=== PATIENT | female | born 1930 | race Caucasian/White ===

== ENCOUNTER 2018-10-10 15:13 | Inpatient (IN) | payer MEDICARE ==
[~2018-10-10] VITALS: Ht 162.6 cm; Wt 56.5 kg
[2018-10-10 15:50] LABS: BASO % 0 % (0-3); EOS # 0.1 x10^3/uL (0.0-0.7); EOS % 1 % (0-3); LYMPH # 1.2 x10^3/uL (1.0-4.8); LYMPH % 20 % (24-48); MEAN CORPUSCULAR HEMOGLOBIN 30 pg (25-35); MEAN CORPUSCULAR HGB CONC 34 g/dL (31-37); MEAN CORPUSCULAR VOLUME 89 fL (79-100); MONO # 0.5 x10^3/uL (0.0-1.1); MONO % 8 % (0-9); NEUT # 4.2 x10^3uL (1.8-7.7); NEUT % 71 % (31-73); PLATELET COUNT 231 x10^3/uL (140-400); RED BLOOD COUNT 4.28 x10^6/uL (3.50-5.40); RED CELL DISTRIBUTION WIDTH 13.2 % (11.5-14.5); WHITE BLOOD COUNT 5.9 x10^3/uL (4.0-11.0)
--- NOTE | 2018-10-10 15:55 | PHYS DOC ---
Past History Past Medical History: Anxiety, Dementia, Depression, Hypertension, Other Past Surgical History: Other Alcohol Use: None Drug Use: None Adult General Chief Complaint Chief Complaint: PSYCH EVALUATION [facility] HPI Patient is a 88 year old female resident of assisted living living brought in for medical clearance for psychiatric admission. Patient states she doesn't know why she is here. Staff of her facility mentioned that she had behavior problem and according to the nursing note she had problem with her who lives at the same facility and calling her son frequency with complaining about everything and getting mad and upset about everything. Patient denies any pain at this time. Patient is alert and oriented and answering questions appropriately. Review of Systems Review of Systems Constitutional: Denies fever or chills [] Eyes: Denies change in visual acuity, redness, or eye pain [] HENT: Denies nasal congestion or sore throat [] Respiratory: Denies cough or shortness of breath [] Cardiovascular: No additional information not addressed in HPI [] GI: Denies abdominal pain, nausea, vomiting, bloody stools or diarrhea [] : Denies dysuria or hematuria [] Musculoskeletal: Denies back pain or joint pain [] Integument: Denies rash or skin lesions [] Neurologic: Denies headache, focal weakness or sensory changes [] Endocrine: Denies polyuria or polydipsia [] All other systems were reviewed and found to be within normal limits, except as documented in this note. Allergies Allergies Allergies Coded Allergies Type Severity Reaction Last Updated Verified No Known Drug Allergies 10/10/18 No Physical Exam Physical Exam Constitutional: Well developed, well nourished, no acute distress, non-toxic appearance. [] HENT: Normocephalic, atraumatic, bilateral external ears normal, oropharynx moist, no oral exudates, nose normal. [] Eyes: PERRLA, EOMI, conjunctiva normal, no discharge. [] Neck: Normal range of motion, no tenderness, supple, no stridor. [] Cardiovascular:Heart rate regular rhythm, no murmur [] Lungs & Thorax: Bilateral breath sounds clear to auscultation [] Abdomen: Bowel sounds normal, soft, no tenderness, no masses, no pulsatile masses. [] Skin: Warm, dry, no erythema, no rash. [] Back: No tenderness, no CVA tenderness. [] Extremities: No tenderness, no cyanosis, no clubbing, ROM intact, no edema. [] Neurologic: Alert and oriented X 3, normal motor function, normal sensory function, no focal deficits noted. [] Psychologic: Affect normal, mood normal. [] Current Patient Data Vital Signs Vital Signs Date Time Temp Pulse Resp B/P (MAP) Pulse Ox O2 Delivery O2 Flow Rate FiO2 10/10/18 15:20 97.9 101 20 98 Room Air EKG EKG EKG interpreted by me. EKG at 1536 showed normal sinus rhythm at rate of 96, normal WA and QT intervals, poor R-wave progress in anteroseptal leads, no acute ST and T-wave abnormalities. Radiology/Procedures Radiology/Procedures [] Course & Med Decision Making Course & Med Decision Making Pertinent Labs reviewed. (See chart for details) Evaluation of patient in ER showed 88-year-old female patient brought in for medical clearance psychiatric admission. Patient was alert and oriented and cooperative and was medically cleared for psychiatric admission. Dragon Disclaimer Dragon Disclaimer This electronic medical record was generated, in whole or in part, using a voice recognition dictation system. Departure Departure: Impression: Primary Impression: Medical clearance for psychiatric admission Additional Impressions: Behavioral problems Elevated blood sugar level Disposition: ADMITTED INPATIENT (at 1620) Condition: STABLE Referrals: LINCOLN ECHEVARRIA MD (PCP) Problem Qualifiers GORDON BUTLER MD Oct 10, 2018 15:55
[2018-10-10 16:03] LABS: ALBUMIN 3.7 g/dL (3.4-5.0); ALBUMIN/GLOBULIN RATIO 1.2 (1.0-1.7); CREATININE 1.1 mg/dL (0.6-1.0); GFR 46.8; POTASSIUM 3.8 mmol/L (3.5-5.1); TOTAL BILIRUBIN 0.4 mg/dL (0.2-1.0); TOTAL PROTEIN 6.9 g/dL (6.4-8.2)
[2018-10-10 16:14] LABS: BACTERIA,URINE 0 /HPF (0-FEW); BILIRUBIN,URINE NEG (NEG); CLARITY,URINE HAZY; COLOR,URINE YELLOW; GLUCOSE,URINE NEG (NEG); NITRITE,URINE NEG (NEG); RBC,URINE 0 /HPF (0-2); SQUAMOUS EPITHELIAL CELL,UR OCC /LPF; UROBILINOGEN,URINE 0.2 mg/dL (0.2 mg/dL); WBC,URINE 0 /HPF (0-4)
[2018-10-10 18:52] VITALS: BP 135/80
[2018-10-10] MEDS ORDERED: CALC-157 PO (19:30)
[2018-10-10] MEDS ORDERED: CLON0.5T11 PO (19:30)
[2018-10-10] MEDS ORDERED: MIRT15TA3 PO (19:30)
[2018-10-10] MEDS ORDERED: ACET500T68 PO (19:30)
[2018-10-10] MEDS ORDERED: RIVA1PAT22 TD (19:30)
[2018-10-10] MEDS ORDERED: MULT-246 PO (19:30)
[2018-10-10] MEDS: MIRTAZAPINE 15 MG TABLET PO SCH (20:34)
[2018-10-10] MEDS: CALCIUM CARB/VIT D3 500/200 TABLET PO SCH (20:34)
[2018-10-10] MEDS: clonazePAM 0.5 MG TABLET PO SCH (20:36)
--- NOTE | 2018-10-10 21:31 | EKG ---
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
[2018-10-10] MEDS: ACETAMINOPHEN 500 MG TABLET PO PRN (22:45)
--- NOTE | 2018-10-10 22:49 | PDOC ---
Exam Note: Yifan Note: Please also refer to the separate dictated note~for this date of service dictated separately. Discussed the patient with Nursing staff reviewed the chart.~Reviewed interim history and current functioning. Reviewed vital signs,~ Labs/ Radiology~and current medications noted below. Continue current treatment with the changes noted in the dictated addendum note Assessment: Vital Signs: Vital Signs Date Time Temp Pulse Resp B/P (MAP) Pulse Ox O2 Delivery O2 Flow Rate FiO2 10/10/18 18:52 99.4 78 20 135/80 (98) 100 10/10/18 16:33 Room Air Labs: Laboratory Tests Test 10/10/18 15:25 White Blood Count 5.9 x10^3/uL (4.0-11.0) Red Blood Count 4.28 x10^6/uL (3.50-5.40) Hemoglobin 13.0 g/dL (12.0-15.5) Hematocrit 38.0 % (36.0-47.0) Mean Corpuscular Volume 89 fL (79-100) Mean Corpuscular Hemoglobin 30 pg (25-35) Mean Corpuscular Hemoglobin Concent 34 g/dL (31-37) Red Cell Distribution Width 13.2 % (11.5-14.5) Platelet Count 231 x10^3/uL (140-400) Neutrophils (%) (Auto) 71 % (31-73) Lymphocytes (%) (Auto) 20 % (24-48) L Monocytes (%) (Auto) 8 % (0-9) Eosinophils (%) (Auto) 1 % (0-3) Basophils (%) (Auto) 0 % (0-3) Neutrophils # (Auto) 4.2 x10^3uL (1.8-7.7) Lymphocytes # (Auto) 1.2 x10^3/uL (1.0-4.8) Monocytes # (Auto) 0.5 x10^3/uL (0.0-1.1) Eosinophils # (Auto) 0.1 x10^3/uL (0.0-0.7) Basophils # (Auto) 0.0 x10^3/uL (0.0-0.2) Urine Collection Type Unknown Urine Color Yellow Urine Clarity Hazy Urine pH 5.5 Urine Specific [place] 1.025 Urine Protein Neg (NEG-TRACE) Urine Glucose (UA) Neg mg/dL (NEG) Urine Ketones (Stick) Trace mg/dL (NEG) Urine Blood Neg (NEG) Urine Nitrite Neg (NEG) Urine Bilirubin Neg (NEG) Urine Urobilinogen Dipstick 0.2 mg/dL (0.2 mg/dL) Urine Leukocyte Esterase Neg (NEG) Urine RBC 0 /HPF (0-2) Urine WBC 0 /HPF (0-4) Urine Squamous Epithelial Cells Occ /LPF Urine Bacteria 0 /HPF (0-FEW) Sodium Level 145 mmol/L (136-145) Potassium Level 3.8 mmol/L (3.5-5.1) Chloride Level 107 mmol/L (98-107) Carbon Dioxide Level 29 mmol/L (21-32) Anion Gap 9 (6-14) Blood Urea Nitrogen 17 mg/dL (7-20) Creatinine 1.1 mg/dL (0.6-1.0) H Estimated GFR (Cockcroft-Gault) 46.8 BUN/Creatinine Ratio 15 (6-20) Glucose Level 186 mg/dL (70-99) H Calcium Level 10.0 mg/dL (8.5-10.1) Magnesium Level 2.0 mg/dL (1.8-2.4) Total Bilirubin 0.4 mg/dL (0.2-1.0) Aspartate Amino Transferase (AST) 20 U/L (15-37) Alanine Aminotransferase (ALT) 23 U/L (14-59) Alkaline Phosphatase 110 U/L (46-116) Total Protein 6.9 g/dL (6.4-8.2) Albumin 3.7 g/dL (3.4-5.0) Albumin/Globulin Ratio 1.2 (1.0-1.7) Current Medications: Meds: Current Medications Clonazepam (KlonoPIN) 0.25 mg TID PO Last administered on 10/10/18at 20:36; Start 10/10/18 at 21:00 Mirtazapine (Remeron) 15 mg QHS PO Last administered on 10/10/18at 20:34; Start 10/10/18 at 21:00 Rivastigmine (Exelon) 1 patch DAILY TD ; Start 10/11/18 at 09:00 Calcium/Vitamin D (Oscal D 500mg/ 200uts) 1 tab BID PO Last administered on at 20:34; Start 10/10/18 at 21:00 Acetaminophen (Tylenol) 500 mg PRN Q6HRS PRN PO PAIN / TEMP Last administered on 10/10/18at 22:45; Start 10/10/18 at 19:45 Multivitamins/ Calcium (Thera-M Plus) 1 tab DAILY PO ; Start 10/11/18 at 09:00 Active Scripts Active Reported Acetaminophen 500 Mg Tablet 500 Mg PO PRN Q6HRS PRN Multi-Vitamin Daily (Multivitamin) 1 Each Tablet 1 Each PO DAILY EXELON 4.6mg/24hr (Rivastigmine) 1 Each Patch.td24 1 Patch TD DAILY Mirtazapine 15 Mg Tablet 15 Mg PO QHS Clonazepam 0.5 Mg Tablet 0.25 Mg PO TID Calcium 500 + Vit D 200 Tablet (Calcium Carbonate/Vitamin D3) 1 Each Tablet 1 Each PO BID I have reviewed the current psychotropics carefully including drug interactions. Risk benefit ratio favors no change other than as noted in my dictated progress note. Diagnosis: Problems: (1) Behavioral problems (2) Elevated blood sugar level (3) Medical clearance for psychiatric admission (4) Anxiety disorder (5) Major depressive disorder, recurrent episode (6) Impulse control disorder (7) Mild cognitive impairment TIM BRUNSON MD Oct 10, 2018 22:49
[2018-10-10] MEDS ORDERED: ACETAMINOPHEN 325 MG TABLET PO PRN (23:00)
[2018-10-10] MEDS ORDERED: MAG HYDROX/AL HYDROX/SIMETH 30 ML ORAL.SUSP PO PRN (23:00)
[2018-10-10] MEDS ORDERED: METHYL SALICYLATE/MENTHOL TOPICAL OINTMENT 29GM TUBE. TP PRN (23:00)
[2018-10-10] MEDS ORDERED: MAGNESIUM HYDROXIDE 2,400 MG/30 ML ORAL.SUSP. PO PRN (23:00)
[2018-10-11 06:05] VITALS: BP 126/77
[2018-10-11] MEDS: clonazePAM 0.5 MG TABLET PO SCH ×3 (08:14→19:41)
[2018-10-11] MEDS: MULTIVITAMIN with MINERAL TABLET. PO SCH (08:15)
[2018-10-11] MEDS: RIVASTIGMINE 4.6MG PATCH. TD SCH (08:15)
[2018-10-11] MEDS: CALCIUM CARB/VIT D3 500/200 TABLET PO SCH ×2 (08:15→19:41)
[2018-10-11] MEDS ORDERED: DEXTROSE 50% 25 GM / 50ML DISP.SYRIN. IV PRN (14:00)
--- NOTE | 2018-10-11 16:09 | HP ---
ADMIT DATE: 10/10/2018 ADMISSION PSYCHIATRIC HISTORY AND EVALUATION This late entry, date of service 10/10/2018 covers elements not covered in my initial notes. The patient is an 88-year-old female referred by Dr. Long, her primary care physician from [facility] in [place], [place]. I met with the patient evening of 10/10/2018 discussed with Isabela German, and nursing staff prior to the patient's admission to gather historical information from [facility] in [place], [place] after the patient was referred to us by Dr. Long, her primary care physician on account of increased anxiety, irritability, being obsessed about going home. She was reportedly verbally abusive to her spouse who also lives at the facility, calling her sons ____ times a day, anxious, agitated, depressed. She has been writing notes over and over, pacing, crying, blames her for the placement. CHIEF COMPLAINT: "They just sent me here to get checked out." HISTORY OF PRESENT ILLNESS: The patient has been residing at the above facility with her after they were unable to stay with themselves at home. She has been increasingly anxious, restless, repetitive and obsessive, wanting to go home, despite the fact that she had failed living at home with her . The patient has had some sleep and appetite changes, pacing, crying spells. No active suicidal or homicidal ideation. No clear history of bipolar disorder. No alcohol or drug abuse. PAST MEDICAL HISTORY: The patient was an inpatient at [facility] from 09/15/2018 to 09/26/2018. CODE STATUS: DNR. DRUG ALLERGIES: Negative. MEDICAL HISTORY: Hypertension, osteoporosis, headaches, weight loss, elevated blood sugar, pseudodementia, systolic murmur. PAST SURGICAL HISTORY: Appendectomy, eye surgery, hysterectomy, dilatation and curettage. She also has chronic constipation. ACCU-CHEKS: None. DIET: Regular with thin liquids. Ambulates independently. CURRENT PSYCHOTROPICS: Klonopin 0.25 mg t.i.d., Remeron 15 mg at bedtime, Exelon patch 4.6 mg a day. FAMILY HISTORY: Noncontributory. 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 No alcohol or drug abuse, physical, sexual or elder abuse history is noted. Not known to be a perpetrator. REACTION TO HOSPITALIZATION: The patient reluctantly accepting of this. ASSETS: Supportive family and stable living at the snf. MENTAL STATUS EXAMINATION: The patient was seen individually evening of 10/10/2018. She is anxious, restless, quite hyperverbal. She was aware of the year and the month, was unsure of the date. Speech coherent. She is able to do two steps on serial sevens. She is somewhat distractable. Mood is depressed, anxious. Affect is mood congruent. She is somewhat obsessive. No active suicidal or homicidal ideation. LABORATORY DATA: Reviewed. IMPRESSION: Major depressive disorder, recurrent, rule out psychotic features, obsessive-compulsive disorder, anxiety disorder, unspecified; mild cognitive impairment. Rest as above. PLAN: Admit to Geropsychiatry Unit at [facility]. I will see the patient daily individually from a psychiatric standpoint, medical followup with Dr. Anderson. We will get past records from [facility]. Continue current psychotropics, observe baseline, then adjust as clinically indicated. She may benefit from the addition of an atypical antipsychotic, may have CT head done if not done recently. Estimated length of stay 10-12 days. DISPOSITION: Plans back to snf. TIM BRUNSON MD DR: FLYNN/mitzi JOB#: [id number] / [id number]
[2018-10-11 16:23] VITALS: BP 136/81
[2018-10-11] MEDS: MIRTAZAPINE 15 MG TABLET PO SCH (19:41)
[2018-10-11 21:22] LABS: THYROID STIM HORMONE (TSH) 2.316 uIU/mL (0.358-3.740)
--- NOTE | 2018-10-11 23:04 | PDOC ---
Exam Note: Yifan Note: Please also refer to the separate dictated note~for this date of service dictated separately.~Patient seen individually. Discussed the patient with Nursing staff reviewed the chart.~Reviewed interim history and current functioning. Reviewed vital signs,~Labs/ Radiology~and current medications noted below. Continue current treatment with the changes noted in the dictated addendum note Assessment: Vital Signs: Vital Signs Date Time Temp Pulse Resp B/P (MAP) Pulse Ox O2 Delivery O2 Flow Rate FiO2 10/11/18 16:23 99.8 89 20 136/81 (99) 98 Room Air Current Medications: Meds: Current Medications Clonazepam (KlonoPIN) 0.25 mg TID PO Last administered on 10/11/18 19:41; Start 10/10/18 at 21:00 Mirtazapine (Remeron) 15 mg QHS PO Last administered on 10/11/18 19:41; Start 10/10/18 at 21:00 Rivastigmine (Exelon) 1 patch DAILY TD Last administered on 10/11/18at 08:15; Start 10/11/18 at 09:00 Calcium/Vitamin D (Oscal D 500mg/ 200uts) 1 tab BID PO Last administered on 19:41; Start 10/10/18 at 21:00 Acetaminophen (Tylenol) 500 mg PRN Q6HRS PRN PO PAIN / TEMP Last administered on 10/10/18at 22:45; Start 10/10/18 at 19:45 Multivitamins/ Calcium (Thera-M Plus) 1 tab DAILY PO Last administered on at 08:15; Start 10/11/18 at 09:00 Acetaminophen (Tylenol) 650 mg PRN Q6HRS PRN PO PAIN / TEMP; Start 10/10/18 at 23:00; Stop 10/10/18 at 23:00; Status DC Multi-Ingredient Ointment (Analgesic [place]) 1 liu PRN QID PRN TP MUSCLE PAIN; Start 10/10/18 at 23:00 Al Hydroxide/Mg Hydroxide (Mylanta Plus Xs) 15 ml PRN AFTMEALHC PRN PO DYSPEPSIA; Start 10/10/18 at 23:00 Magnesium Hydroxide (Milk Of Magnesia) 2,400 mg PRN QHS PRN PO CONSTIPATION; Start 10/10/18 at 23:00 Dextrose 12.5 gm PRN Q15MIN PRN IV SEE COMMENTS; Start 10/11/18 at 14:00 Quetiapine Fumarate (SEROquel) 12.5 mg 0900,1300,1700 PO ; Start 10/12/18 at 09: 00 Active Scripts Active Reported Acetaminophen 500 Mg Tablet 500 Mg PO PRN Q6HRS PRN Multi-Vitamin Daily (Multivitamin) 1 Each Tablet 1 Each PO DAILY EXELON 4.6mg/24hr (Rivastigmine) 1 Each Patch.td24 1 Patch TD DAILY Mirtazapine 15 Mg Tablet 15 Mg PO QHS Clonazepam 0.5 Mg Tablet 0.25 Mg PO TID Calcium 500 + Vit D 200 Tablet (Calcium Carbonate/Vitamin D3) 1 Each Tablet 1 Each PO BID I have reviewed the current psychotropics carefully including drug interactions. Risk benefit ratio favors no change other than as noted in my dictated progress note. Diagnosis: Problems: (1) Behavioral problems (2) Elevated blood sugar level (3) Medical clearance for psychiatric admission (4) Anxiety disorder (5) Major depressive disorder, recurrent episode (6) Impulse control disorder (7) Mild cognitive impairment TIM BRUNSON MD Oct 11, 2018 23:04
--- NOTE | 2018-10-11 23:32 | CONS ---
DATE OF CONSULTATION: 10/11/2018 HISTORY OF PRESENT ILLNESS: The patient is an 88-year-old female patient, resident at [facility], who was admitted on account of being obsessing about going home, verbally abusive to spouse. She called her son about 20-62 times a day, anxious, agitated, depressed, writes notes over and over, pacing, crying, blames for placement, all this in a background of major neurocognitive disorder, vascular, Alzheimer with delusion, depression and behavioral disturbances. She is also known to have anxiety disorder and impulse control disorder. Medically, she apparently is known to have hypertension, osteoporosis, headache, weight loss and hyperglycemia. PAST SURGICAL HISTORY: Significant for cataract extraction, appendectomy, hysterectomy, dilatation and curettage. ALLERGIES: She has no known drug allergies. MEDICATIONS: She is currently on the following medication, rivastigmine for Exelon 4.6 mg 24-hour patch transdermal daily, Tylenol 500 mg every 6 hours, clonazepam 0.25 mg 3 times a day, mirtazapine 15 mg at bedtime, calcium carbonate with vitamin D3 one tablet twice a day, multivitamin 1 tablet once a day. FAMILY HISTORY: Noncontributory. SOCIAL HISTORY: She is . According to her, she has 2 sons. 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 REVIEW OF SYSTEMS: As per history of present illness. PHYSICAL EXAMINATION GENERAL: When I examined her, she looked well and was clearly in no apparent respiratory distress. She was pale, cachectic, but no jaundice, cyanosis, or thyromegaly. No jugular venous distension. No lower limb edema. VITAL SIGNS: Her heart rate was 80, blood pressure was 126/77, temperature was 96.6, respiratory rate 20 and oxygen saturation was 99%. HEAD, EYES, EARS, NOSE, AND THROAT: Showed normocephalic, atraumatic. NECK: Supple with no lymphadenopathy, no thyromegaly, no jugular venous distension. No lower limb edema. HEART: Showed normal first and second heart sounds. No gallop, rub or murmur. CHEST: Clear to auscultation. No crepitation or rhonchi. ABDOMEN: Scaphoid, soft, nontender. NEUROLOGIC: She was demented, but without any obvious lateralizing sign. All her cranial nerves are intact. EXTREMITIES: She moves extremities without difficulty. She ambulates without assistance or assistive devices. LABORATORY DATA: Showed her white cell count to be 5900, hemoglobin 13, hematocrit 38, MCV 89 and platelet count 231,000. Her chemistry showed serum sodium of 145, potassium 3.8, chloride 107, bicarbonate 29, anion gap of 9, BUN 17, creatinine 1.1. Estimated GFR was 47 mL per minute. Her glucose 186, calcium was 10, magnesium 2. Total bilirubin, AST, ALT, alkaline phosphatase were normal. Total protein was 6.9, albumin was 3.7. Urinalysis showed the urine was yellow, hazy with a pH of 5.5, specific gravity of 1.025. The urine was negative for protein, glucose. There was trace of ketones, negative for blood nitrite and leukocyte esterase. There are no rbc's, no wbc's, and no bacteria. IMPRESSION: In summary, this is an 88-year-old female patient, who was admitted on account of being obsessed about going home, verbally abusive to her spouse, called 20-62 times per day, anxious, agitated, depressed, writes notes over and over, pacing, crying, blames her for placement, all this in a background of major neurocognitive disorder, vascular, Alzheimer with delusion, depression, behavioral disturbances; anxiety as well as impulse control disorder. Medically, she is known to have high blood pressure, hyperglycemia, weight loss, osteoporosis as well as chronic constipation. She is in fact is not on any antihypertensive medication or any medication for hyperglycemia. She does have chronic kidney disease with creatinine slightly elevated to 1.1 and estimated GFR of 46. Her blood sugar is definitely high. She seemed to be all in all medically stable. I will obviously monitor her blood sugar and check her hemoglobin A1c and decide if the blood sugar needs to be treated. I will obviously follow the lab work that is still pending at the time of this dictation as her thyroid function test and other labs are still pending at the time of this dictation. Thank you, Dr. Jacobson, for allowing me to participate in the care of this patient. VADIM ALCANTARA MD DR: DARLINE/mitzi JOB#: [id number] / [id number]
[2018-10-12 06:09] VITALS: BP 119/69
[2018-10-12] MEDS: MULTIVITAMIN with MINERAL TABLET. PO SCH (07:45)
[2018-10-12] MEDS: CALCIUM CARB/VIT D3 500/200 TABLET PO SCH ×2 (07:45→20:41)
[2018-10-12] MEDS: RIVASTIGMINE 4.6MG PATCH. TD SCH (07:45)
[2018-10-12] MEDS: clonazePAM 0.5 MG TABLET PO SCH ×3 (07:51→20:39)
[2018-10-12] MEDS: QUEtiapine 25 MG TABLET. PO SCH ×3 (07:52→17:21)
--- NOTE | 2018-10-12 09:23 | RAD ---
EXAM: Head CT without contrast. HISTORY: Mental status changes. TECHNIQUE: Computed tomographic images of the head were obtained without contrast. *One or more of the following individualized dose reduction techniques were utilized for this examination: 1. Automated exposure control. 2. Adjustment of the mA and/or kV according to patient size. 3. Use of iterative reconstruction technique. COMPARISON: 07/31/2017. FINDINGS: There is no acute or subacute extra-axial or intraparenchymal hemorrhage. There is no mass effect or midline shift. There is no hydrocephalus. There are areas of decreased attenuation within the cerebral white matter, nonspecific and likely related to chronic small vessel disease. The visualized portions of the orbits, paranasal sinuses and mastoid air cells are unremarkable. No suspicious calvarial lesion is seen. IMPRESSION: No acute intracranial findings. Note is made that MRI is more sensitive for acute infarction. Electronically signed by: Belén Sweet MD (10/12/2018 9:20 AM) [id number]
[2018-10-12 16:06] VITALS: BP 127/69
[2018-10-12] MEDS: MIRTAZAPINE 15 MG TABLET PO SCH (20:41)
--- NOTE | 2018-10-12 21:19 | PN ---
DATE: 10/11/2018 PSYCHIATRIC PROGRESS NOTE This late entry 10/11/2018 covers elements not covered in my initial note. SUBJECTIVE: I met with the patient in the evening. The patient slept 5-1/2 hours. I met with her repeatedly on rounds that she would continue to follow me after a lengthy initial visit, quite disorganized previous night. We will check a CT head if not done recently, confused, anxious. We are waiting for records from [facility]. REVIEW OF SYSTEMS: Vague somatic symptoms. No CV, , pulmonary, eye system symptoms on review. MENTAL STATUS EXAM: Oriented to herself and situation. Speech coherent, rapid at times. Abstraction fair, computation impaired, language function intact, attention span short. Mood and affect somewhat anxious, labile. LABORATORY DATA: Reviewed. IMPRESSION: Major depressive disorder, severe; anxiety disorder, unspecified; mild cognitive impairment. PLAN: CT head if not done recently. Records from [place], start Seroquel 12.5 mg 3 times a day. Rest unchanged from initial note. MAN Rashad BRUNSON MD DR: FLYNN/mitzi JOB#: [id number] / [id number]
--- NOTE | 2018-10-12 23:07 | PDOC ---
Exam Note: Yifan Note: Please also refer to the separate dictated note~for this date of service dictated separately.~Patient seen individually. Discussed the patient with Nursing staff reviewed the chart.~Reviewed interim history and current functioning. Reviewed vital signs,~Labs/ Radiology~and current medications noted below. Continue current treatment with the changes noted in the dictated addendum note Assessment: Vital Signs: Vital Signs Date Time Temp Pulse Resp B/P (MAP) Pulse Ox O2 Delivery O2 Flow Rate FiO2 10/12/18 16:06 98.2 89 22 127/69 (88) 99 10/11/18 16:23 Room Air I&O Intake and Output 10/12/18 06:59 Intake Total 840 ml Balance 840 ml Intake Oral 840 ml Labs: Laboratory Tests Test 10/12/18 11:47 10/12/18 16:59 Glucose (Fingerstick) 82 mg/dL (70-99) 102 mg/dL (70-99) H Current Medications: Meds: Current Medications Clonazepam (KlonoPIN) 0.25 mg TID PO Last administered on 10/12/18 20:39; Start 10/10/18 at 21:00 Mirtazapine (Remeron) 15 mg QHS PO Last administered on 10/12/18 20:41; Start 10/10/18 at 21:00 Rivastigmine (Exelon) 1 patch DAILY TD Last administered on 10/12/18 07:45; Start 10/11/18 at 09:00 Calcium/Vitamin D (Oscal D 500mg/ 200uts) 1 tab BID PO Last administered on 20:41; Start 10/10/18 at 21:00 Acetaminophen (Tylenol) 500 mg PRN Q6HRS PRN PO PAIN / TEMP Last administered on 10/10/18at 22:45; Start 10/10/18 at 19:45 Multivitamins/ Calcium (Thera-M Plus) 1 tab DAILY PO Last administered on at 07:45; Start 10/11/18 at 09:00 Acetaminophen (Tylenol) 650 mg PRN Q6HRS PRN PO PAIN / TEMP; Start 10/10/18 at 23:00; Stop 10/10/18 at 23:00; Status DC Multi-Ingredient Ointment (Analgesic [place]) 1 liu PRN QID PRN TP MUSCLE PAIN; Start 10/10/18 at 23:00 Al Hydroxide/Mg Hydroxide (Mylanta Plus Xs) 15 ml PRN AFTMEALHC PRN PO DYSPEPSIA; Start 10/10/18 at 23:00 Magnesium Hydroxide (Milk Of Magnesia) 2,400 mg PRN QHS PRN PO CONSTIPATION; Start 10/10/18 at 23:00 Dextrose 12.5 gm PRN Q15MIN PRN IV SEE COMMENTS; Start 10/11/18 at 14:00 Quetiapine Fumarate (SEROquel) 12.5 mg 0900,1300,1700 PO Last administered on at 17:21; Start 10/12/18 at 09:00 Active Scripts Active Reported Acetaminophen 500 Mg Tablet 500 Mg PO PRN Q6HRS PRN Multi-Vitamin Daily (Multivitamin) 1 Each Tablet 1 Each PO DAILY EXELON 4.6mg/24hr (Rivastigmine) 1 Each Patch.td24 1 Patch TD DAILY Mirtazapine 15 Mg Tablet 15 Mg PO QHS Clonazepam 0.5 Mg Tablet 0.25 Mg PO TID Calcium 500 + Vit D 200 Tablet (Calcium Carbonate/Vitamin D3) 1 Each Tablet 1 Each PO BID I have reviewed the current psychotropics carefully including drug interactions. Risk benefit ratio favors no change other than as noted in my dictated progress note. Diagnosis: Problems: (1) Behavioral problems (2) Elevated blood sugar level (3) Medical clearance for psychiatric admission (4) Anxiety disorder (5) Major depressive disorder, recurrent episode (6) Impulse control disorder (7) Mild cognitive impairment TIM BRUNSON MD Oct 12, 2018 23:06
[2018-10-13 05:32] VITALS: BP 113/68
[2018-10-13] MEDS: QUEtiapine 25 MG TABLET. PO SCH ×3 (08:09→16:53)
[2018-10-13] MEDS: RIVASTIGMINE 4.6MG PATCH. TD SCH (08:09)
[2018-10-13] MEDS: CALCIUM CARB/VIT D3 500/200 TABLET PO SCH ×2 (08:09→20:44)
[2018-10-13] MEDS: MULTIVITAMIN with MINERAL TABLET. PO SCH (08:09)
[2018-10-13] MEDS: clonazePAM 0.5 MG TABLET PO SCH ×3 (08:12→20:44)
[2018-10-13 16:23] VITALS: BP 123/81
[2018-10-13] MEDS: MIRTAZAPINE 15 MG TABLET PO SCH (20:44)
--- NOTE | 2018-10-13 22:43 | PDOC ---
Exam Note: Yifan Note: Please also refer to the separate dictated note~for this date of service dictated separately.~Patient seen individually. Discussed the patient with Nursing staff reviewed the chart.~Reviewed interim history and current functioning. Reviewed vital signs,~Labs/ Radiology~and current medications noted below. Continue current treatment with the changes noted in the dictated addendum note Assessment: Vital Signs: Vital Signs Date Time Temp Pulse Resp B/P (MAP) Pulse Ox O2 Delivery O2 Flow Rate FiO2 10/13/18 16:23 98.6 97 20 123/81 (95) 99 Room Air I&O Intake and Output 10/13/18 06:59 Intake Total 1320 ml Balance 1320 ml Intake Oral 1320 ml # Voids 1 Current Medications: Meds: Current Medications Clonazepam (KlonoPIN) 0.25 mg TID PO Last administered on 10/13/18 20:44; Start 10/10/18 at 21:00 Mirtazapine (Remeron) 15 mg QHS PO Last administered on 10/13/18 20:44; Start 10/10/18 at 21:00 Rivastigmine (Exelon) 1 patch DAILY TD Last administered on 10/13/18 08:09; Start 10/11/18 at 09:00 Calcium/Vitamin D (Oscal D 500mg/ 200uts) 1 tab BID PO Last administered on 20:44; Start 10/10/18 at 21:00 Acetaminophen (Tylenol) 500 mg PRN Q6HRS PRN PO PAIN / TEMP Last administered on 10/10/18 22:45; Start 10/10/18 at 19:45 Multivitamins/ Calcium (Thera-M Plus) 1 tab DAILY PO Last administered on 08:09; Start 10/11/18 at 09:00 Acetaminophen (Tylenol) 650 mg PRN Q6HRS PRN PO PAIN / TEMP; Start 10/10/18 at 23:00; Stop 10/10/18 at 23:00; Status DC Multi-Ingredient Ointment (Analgesic [place]) 1 liu PRN QID PRN TP MUSCLE PAIN; Start 10/10/18 at 23:00 Al Hydroxide/Mg Hydroxide (Mylanta Plus Xs) 15 ml PRN AFTMEALHC PRN PO DYSPEPSIA; Start 10/10/18 at 23:00 Magnesium Hydroxide (Milk Of Magnesia) 2,400 mg PRN QHS PRN PO CONSTIPATION; Start 10/10/18 at 23:00 Dextrose 12.5 gm PRN Q15MIN PRN IV SEE COMMENTS; Start 10/11/18 at 14:00 Quetiapine Fumarate (SEROquel) 12.5 mg 0900,1300,1700 PO Last administered on at 16:53; Start 10/12/18 at 09:00 Fluvoxamine Maleate (Luvox) 25 mg HS PO Last administered on 10/13/18at 20:44; Start 10/13/18 at 21:00; Stop 10/15/18 at 23:00 Fluvoxamine Maleate (Luvox) 50 mg HS PO ; Start 10/16/18 at 21:00 Active Scripts Active Reported Acetaminophen 500 Mg Tablet 500 Mg PO PRN Q6HRS PRN Multi-Vitamin Daily (Multivitamin) 1 Each Tablet 1 Each PO DAILY EXELON 4.6mg/24hr (Rivastigmine) 1 Each Patch.td24 1 Patch TD DAILY Mirtazapine 15 Mg Tablet 15 Mg PO QHS Clonazepam 0.5 Mg Tablet 0.25 Mg PO TID Calcium 500 + Vit D 200 Tablet (Calcium Carbonate/Vitamin D3) 1 Each Tablet 1 Each PO BID I have reviewed the current psychotropics carefully including drug interactions. Risk benefit ratio favors no change other than as noted in my dictated progress note. Diagnosis: Problems: (1) Behavioral problems (2) Elevated blood sugar level (3) Medical clearance for psychiatric admission (4) Anxiety disorder (5) Major depressive disorder, recurrent episode (6) Impulse control disorder (7) Mild cognitive impairment TIM BRUNSON MD Oct 13, 2018 22:43
[2018-10-14 06:01] VITALS: BP 106/72
[2018-10-14] MEDS: RIVASTIGMINE 4.6MG PATCH. TD SCH (08:57)
[2018-10-14] MEDS: CALCIUM CARB/VIT D3 500/200 TABLET PO SCH ×2 (08:57→21:24)
[2018-10-14] MEDS: MULTIVITAMIN with MINERAL TABLET. PO SCH (08:58)
[2018-10-14] MEDS: QUEtiapine 25 MG TABLET. PO SCH ×3 (08:58→18:09)
[2018-10-14] MEDS: clonazePAM 0.5 MG TABLET PO SCH ×3 (08:59→21:24)
[2018-10-14 16:06] VITALS: BP 138/81
[2018-10-14] MEDS: MIRTAZAPINE 15 MG TABLET PO SCH (21:24)
--- NOTE | 2018-10-14 21:30 | PN ---
DATE: 10/12/2018 PSYCHIATRIC PROGRESS NOTE This late entry 10/12/2018 covers elements not covered in my initial note. SUBJECTIVE: I met with the patient in the evening. The patient slept 7-1/[address] head shows no acute changes. There is small vessel ischemic disease, but no other acute intracranial abnormality. The patient remains extremely obsessive, anxious, repetitive, slept 7-1/2 hours. REVIEW OF SYSTEMS: No CV, , pulmonary, eye system symptoms on review. MENTAL STATUS EXAM: Reasonably oriented. Speech coherent, rapid at times. Abstraction fair, computation impaired, language function intact, attention span short. Mood and affect labile. LABORATORY DATA: Reviewed. IMPRESSION: Unchanged from initial note. PLAN: No change from initial note, but we will go ahead and add Seroquel 12.5 mg 9 a.m., 1:00 p.m., 5:00 p.m. Rest unchanged. May consider Luvox for her OCD symptoms. TIM BRUNSON MD DR: FLYNN/mitzi JOB#: [id number] / [id number]
--- NOTE | 2018-10-14 21:32 | PN ---
DATE: 10/13/2018 PSYCHIATRIC PROGRESS NOTE This late entry 10/13/2018 covers elements not covered in my initial note. SUBJECTIVE: I met with the patient in the evening at length repeatedly as she was back to me with further questions, part of her obsessiveness, anxiety. Also discussed at treatment team meeting with the entire team. We are waiting for records from [facility]. She has made 210 telephone calls in a few days at the facility before she came here. She has been writing repetitively on pieces of paper, obsessive. REVIEW OF SYSTEMS: Positive for vague somatic symptoms. No CV, , pulmonary, eye system symptoms on review. MENTAL STATUS EXAM: Reasonably oriented. Speech is coherent, rapid. Abstraction fair, computation impaired, language function intact, attention span short. Mood and affect, anxious, labile, obsessive. LABORATORY DATA: Reviewed. IMPRESSION: Unchanged from initial note. PLAN: We will check CT head if not done recently. Start Luvox 25 mg a day for 3 days, then 50 mg a day. Maintain Seroquel. Rest unchanged per initial note. MAN Rashad BRUNSON MD DR: FLYNN/mitzi JOB#: [id number] / [id number]
--- NOTE | 2018-10-14 22:48 | PDOC ---
Exam Note: Yifan Note: Please also refer to the separate dictated note~for this date of service dictated separately.~Patient seen individually. Discussed the patient with Nursing staff reviewed the chart.~Reviewed interim history and current functioning. Reviewed vital signs,~Labs/ Radiology~and current medications noted below. Continue current treatment with the changes noted in the dictated addendum note Assessment: Vital Signs: Vital Signs Date Time Temp Pulse Resp B/P (MAP) Pulse Ox O2 Delivery O2 Flow Rate FiO2 10/14/18 16:06 97.6 82 22 138/81 (100) 97 Room Air I&O Intake and Output 10/14/18 06:59 Intake Total 980 ml Balance 980 ml Intake Oral 980 ml # Voids 1 Current Medications: Meds: Current Medications Clonazepam (KlonoPIN) 0.25 mg TID PO Last administered on 10/14/18 21:24; Start 10/10/18 at 21:00 Mirtazapine (Remeron) 15 mg QHS PO Last administered on 10/14/18 21:24; Start 10/10/18 at 21:00 Rivastigmine (Exelon) 1 patch DAILY TD Last administered on 10/14/18 08:57; Start 10/11/18 at 09:00 Calcium/Vitamin D (Oscal D 500mg/ 200uts) 1 tab BID PO Last administered on 21:24; Start 10/10/18 at 21:00 Acetaminophen (Tylenol) 500 mg PRN Q6HRS PRN PO PAIN / TEMP Last administered on 10/10/18 22:45; Start 10/10/18 at 19:45 Multivitamins/ Calcium (Thera-M Plus) 1 tab DAILY PO Last administered on 08:58; Start 10/11/18 at 09:00 Acetaminophen (Tylenol) 650 mg PRN Q6HRS PRN PO PAIN / TEMP; Start 10/10/18 at 23:00; Stop 10/10/18 at 23:00; Status DC Multi-Ingredient Ointment (Analgesic [place]) 1 liu PRN QID PRN TP MUSCLE PAIN; Start 10/10/18 at 23:00 Al Hydroxide/Mg Hydroxide (Mylanta Plus Xs) 15 ml PRN AFTMEALHC PRN PO DYSPEPSIA; Start 10/10/18 at 23:00 Magnesium Hydroxide (Milk Of Magnesia) 2,400 mg PRN QHS PRN PO CONSTIPATION; Start 10/10/18 at 23:00 Dextrose 12.5 gm PRN Q15MIN PRN IV SEE COMMENTS; Start 10/11/18 at 14:00 Quetiapine Fumarate (SEROquel) 12.5 mg 0900,1300,1700 PO Last administered on at 18:09; Start 10/12/18 at 09:00 Fluvoxamine Maleate (Luvox) 25 mg HS PO Last administered on 10/14/18at 21:24; Start 10/13/18 at 21:00; Stop 10/15/18 at 23:00 Fluvoxamine Maleate (Luvox) 50 mg HS PO ; Start 10/16/18 at 21:00 Active Scripts Active Reported Acetaminophen 500 Mg Tablet 500 Mg PO PRN Q6HRS PRN Multi-Vitamin Daily (Multivitamin) 1 Each Tablet 1 Each PO DAILY EXELON 4.6mg/24hr (Rivastigmine) 1 Each Patch.td24 1 Patch TD DAILY Mirtazapine 15 Mg Tablet 15 Mg PO QHS Clonazepam 0.5 Mg Tablet 0.25 Mg PO TID Calcium 500 + Vit D 200 Tablet (Calcium Carbonate/Vitamin D3) 1 Each Tablet 1 Each PO BID I have reviewed the current psychotropics carefully including drug interactions. Risk benefit ratio favors no change other than as noted in my dictated progress note. Diagnosis: Problems: (1) Behavioral problems (2) Elevated blood sugar level (3) Medical clearance for psychiatric admission (4) Anxiety disorder (5) Major depressive disorder, recurrent episode (6) Impulse control disorder (7) Mild cognitive impairment TIM BRUNSON MD Oct 14, 2018 22:48
[2018-10-15 06:08] VITALS: BP 161/78
[2018-10-15] MEDS: clonazePAM 0.5 MG TABLET PO SCH ×3 (08:45→19:25)
[2018-10-15] MEDS: CALCIUM CARB/VIT D3 500/200 TABLET PO SCH ×2 (08:45→19:21)
[2018-10-15] MEDS: MULTIVITAMIN with MINERAL TABLET. PO SCH (08:46)
[2018-10-15] MEDS: RIVASTIGMINE 4.6MG PATCH. TD SCH (08:46)
[2018-10-15] MEDS: QUEtiapine 25 MG TABLET. PO SCH ×3 (08:46→17:05)
[2018-10-15 10:40] LABS: BASO % 0 % (0-3); EOS # 0.1 x10^3/uL (0.0-0.7); EOS % 3 % (0-3); HEMATOCRIT 37.4 % (36.0-47.0); HEMOGLOBIN 12.6 g/dL (12.0-15.5); LYMPH # 1.2 x10^3/uL (1.0-4.8); LYMPH % 31 % (24-48); MEAN CORPUSCULAR HEMOGLOBIN 30 pg (25-35); MEAN CORPUSCULAR HGB CONC 34 g/dL (31-37); MEAN CORPUSCULAR VOLUME 89 fL (79-100); MONO # 0.5 x10^3/uL (0.0-1.1); MONO % 12 % (0-9); NEUT # 2.1 x10^3uL (1.8-7.7); NEUT % 54 % (31-73); PLATELET COUNT 214 x10^3/uL (140-400); RED BLOOD COUNT 4.19 x10^6/uL (3.50-5.40); RED CELL DISTRIBUTION WIDTH 13.2 % (11.5-14.5); WHITE BLOOD COUNT 3.9 x10^3/uL (4.0-11.0)
[2018-10-15 10:58] LABS: ALBUMIN 3.3 g/dL (3.4-5.0); CALCIUM 9.9 mg/dL (8.5-10.1); CREATININE 0.9 mg/dL (0.6-1.0); POTASSIUM 3.9 mmol/L (3.5-5.1); TOTAL BILIRUBIN 0.5 mg/dL (0.2-1.0); TOTAL PROTEIN 6.6 g/dL (6.4-8.2)
[2018-10-15 17:26] VITALS: BP 124/79
[2018-10-15] MEDS: MIRTAZAPINE 15 MG TABLET PO SCH (19:22)
--- NOTE | 2018-10-15 22:43 | PDOC ---
Exam Note: Yifan Note: Please also refer to the separate dictated note~for this date of service dictated separately.~Patient seen individually. Discussed the patient with Nursing staff reviewed the chart.~Reviewed interim history and current functioning. Reviewed vital signs,~Labs/ Radiology~and current medications noted below. Continue current treatment with the changes noted in the dictated addendum note Assessment: Vital Signs: Vital Signs Date Time Temp Pulse Resp B/P (MAP) Pulse Ox O2 Delivery O2 Flow Rate FiO2 10/15/18 17:26 98.9 88 16 124/79 (94) 96 10/14/18 16:06 Room Air I&O Intake and Output 10/15/18 07:00 Intake Total 960 ml Balance 960 ml Intake Oral 960 ml # Voids 1 Labs: Laboratory Tests Test 10/15/18 10:15 White Blood Count 3.9 x10^3/uL (4.0-11.0) L Red Blood Count 4.19 x10^6/uL (3.50-5.40) Hemoglobin 12.6 g/dL (12.0-15.5) Hematocrit 37.4 % (36.0-47.0) Mean Corpuscular Volume 89 fL (79-100) Mean Corpuscular Hemoglobin 30 pg (25-35) Mean Corpuscular Hemoglobin Concent 34 g/dL (31-37) Red Cell Distribution Width 13.2 % (11.5-14.5) Platelet Count 214 x10^3/uL (140-400) Neutrophils (%) (Auto) 54 % (31-73) Lymphocytes (%) (Auto) 31 % (24-48) Monocytes (%) (Auto) 12 % (0-9) H Eosinophils (%) (Auto) 3 % (0-3) Basophils (%) (Auto) 0 % (0-3) Neutrophils # (Auto) 2.1 x10^3uL (1.8-7.7) Lymphocytes # (Auto) 1.2 x10^3/uL (1.0-4.8) Monocytes # (Auto) 0.5 x10^3/uL (0.0-1.1) Eosinophils # (Auto) 0.1 x10^3/uL (0.0-0.7) Basophils # (Auto) 0.0 x10^3/uL (0.0-0.2) Sodium Level 144 mmol/L (136-145) Potassium Level 3.9 mmol/L (3.5-5.1) Chloride Level 108 mmol/L (98-107) H Carbon Dioxide Level 29 mmol/L (21-32) Anion Gap 7 (6-14) Blood Urea Nitrogen 18 mg/dL (7-20) Creatinine 0.9 mg/dL (0.6-1.0) Estimated GFR (Cockcroft-Gault) 59.0 BUN/Creatinine Ratio 20 (6-20) Glucose Level 124 mg/dL (70-99) H Calcium Level 9.9 mg/dL (8.5-10.1) Total Bilirubin 0.5 mg/dL (0.2-1.0) Aspartate Amino Transferase (AST) 18 U/L (15-37) Alanine Aminotransferase (ALT) 22 U/L (14-59) Alkaline Phosphatase 91 U/L (46-116) Total Protein 6.6 g/dL (6.4-8.2) Albumin 3.3 g/dL (3.4-5.0) L Albumin/Globulin Ratio 1.0 (1.0-1.7) Current Medications: Meds: Current Medications Clonazepam (KlonoPIN) 0.25 mg TID PO Last administered on 10/15/18 19:25; Start 10/10/18 at 21:00 Mirtazapine (Remeron) 15 mg QHS PO Last administered on 10/15/18 19:22; Start 10/10/18 at 21:00 Rivastigmine (Exelon) 1 patch DAILY TD Last administered on 10/15/18 08:46; Start 10/11/18 at 09:00 Calcium/Vitamin D (Oscal D 500mg/ 200uts) 1 tab BID PO Last administered on 19:21; Start 10/10/18 at 21:00 Acetaminophen (Tylenol) 500 mg PRN Q6HRS PRN PO PAIN / TEMP Last administered on 10/10/18 22:45; Start 10/10/18 at 19:45 Multivitamins/ Calcium (Thera-M Plus) 1 tab DAILY PO Last administered on 08:46; Start 10/11/18 at 09:00 Acetaminophen (Tylenol) 650 mg PRN Q6HRS PRN PO PAIN / TEMP; Start 10/10/18 at 23:00; Stop 10/10/18 at 23:00; Status DC Multi-Ingredient Ointment (Analgesic [place]) 1 liu PRN QID PRN TP MUSCLE PAIN; Start 10/10/18 at 23:00 Al Hydroxide/Mg Hydroxide (Mylanta Plus Xs) 15 ml PRN AFTMEALHC PRN PO DYSPEPSIA; Start 10/10/18 at 23:00 Magnesium Hydroxide (Milk Of Magnesia) 2,400 mg PRN QHS PRN PO CONSTIPATION; Start 10/10/18 at 23:00 Dextrose 12.5 gm PRN Q15MIN PRN IV SEE COMMENTS; Start 10/11/18 at 14:00 Quetiapine Fumarate (SEROquel) 12.5 mg 0900,1300,1700 PO Last administered on at 17:05; Start 10/12/18 at 09:00 Fluvoxamine Maleate (Luvox) 25 mg HS PO Last administered on 10/15/18at 19:21; Start 10/13/18 at 21:00; Stop 10/15/18 at 23:00 Fluvoxamine Maleate (Luvox) 50 mg HS PO ; Start 10/16/18 at 21:00 Olanzapine (ZyPREXA ZYDIS) 2.5 mg PRN Q2HR PRN PO PSYCHOSIS Last administered on 10/15/18at 15:54; Start 10/15/18 at 15:45 Active Scripts Active Reported Acetaminophen 500 Mg Tablet 500 Mg PO PRN Q6HRS PRN Multi-Vitamin Daily (Multivitamin) 1 Each Tablet 1 Each PO DAILY EXELON 4.6mg/24hr (Rivastigmine) 1 Each Patch.td24 1 Patch TD DAILY Mirtazapine 15 Mg Tablet 15 Mg PO QHS Clonazepam 0.5 Mg Tablet 0.25 Mg PO TID Calcium 500 + Vit D 200 Tablet (Calcium Carbonate/Vitamin D3) 1 Each Tablet 1 Each PO BID I have reviewed the current psychotropics carefully including drug interactions. Risk benefit ratio favors no change other than as noted in my dictated progress note. Diagnosis: Problems: (1) Behavioral problems (2) Elevated blood sugar level (3) Medical clearance for psychiatric admission (4) Anxiety disorder (5) Major depressive disorder, recurrent episode (6) Impulse control disorder (7) Mild cognitive impairment TIM BRUNSON MD Oct 15, 2018 22:43
[2018-10-16 06:38] VITALS: BP 150/82
[2018-10-16] MEDS: CALCIUM CARB/VIT D3 500/200 TABLET PO SCH ×2 (09:06→19:52)
[2018-10-16] MEDS: clonazePAM 0.5 MG TABLET PO SCH ×3 (09:06→19:56)
[2018-10-16] MEDS: MULTIVITAMIN with MINERAL TABLET. PO SCH (09:07)
[2018-10-16] MEDS: QUEtiapine 25 MG TABLET. PO SCH ×3 (09:07→16:37)
[2018-10-16] MEDS: RIVASTIGMINE 4.6MG PATCH. TD SCH (09:07)
[2018-10-16 15:52] VITALS: BP 111/72
[2018-10-16] MEDS: MIRTAZAPINE 15 MG TABLET PO SCH (19:52)
--- NOTE | 2018-10-16 22:48 | PDOC ---
Exam Note: Yifan Note: Please also refer to the separate dictated note~for this date of service dictated separately.~Patient seen individually. Discussed the patient with Nursing staff reviewed the chart.~Reviewed interim history and current functioning. Reviewed vital signs,~Labs/ Radiology~and current medications noted below. Continue current treatment with the changes noted in the dictated addendum note Assessment: Vital Signs: Vital Signs Date Time Temp Pulse Resp B/P (MAP) Pulse Ox O2 Delivery O2 Flow Rate FiO2 10/16/18 15:52 97.6 76 18 111/72 (85) 97 10/14/18 16:06 Room Air I&O Intake and Output 10/16/18 07:00 Intake Total 960 ml Balance 960 ml Intake Oral 960 ml Current Medications: Meds: Current Medications Clonazepam (KlonoPIN) 0.25 mg TID PO Last administered on 10/16/18 19:56; Start 10/10/18 at 21:00 Mirtazapine (Remeron) 15 mg QHS PO Last administered on 10/16/18 19:52; Start 10/10/18 at 21:00 Rivastigmine (Exelon) 1 patch DAILY TD Last administered on 10/16/18 09:07; Start 10/11/18 at 09:00 Calcium/Vitamin D (Oscal D 500mg/ 200uts) 1 tab BID PO Last administered on 19:52; Start 10/10/18 at 21:00 Acetaminophen (Tylenol) 500 mg PRN Q6HRS PRN PO PAIN / TEMP Last administered on 10/10/18at 22:45; Start 10/10/18 at 19:45 Multivitamins/ Calcium (Thera-M Plus) 1 tab DAILY PO Last administered on 09:07; Start 10/11/18 at 09:00 Acetaminophen (Tylenol) 650 mg PRN Q6HRS PRN PO PAIN / TEMP; Start 10/10/18 at 23:00; Stop 10/10/18 at 23:00; Status DC Multi-Ingredient Ointment (Analgesic [place]) 1 liu PRN QID PRN TP MUSCLE PAIN; Start 10/10/18 at 23:00 Al Hydroxide/Mg Hydroxide (Mylanta Plus Xs) 15 ml PRN AFTMEALHC PRN PO DYSPEPSIA; Start 10/10/18 at 23:00 Magnesium Hydroxide (Milk Of Magnesia) 2,400 mg PRN QHS PRN PO CONSTIPATION; Start 10/10/18 at 23:00 Dextrose 12.5 gm PRN Q15MIN PRN IV SEE COMMENTS; Start 10/11/18 at 14:00 Quetiapine Fumarate (SEROquel) 12.5 mg 0900,1300,1700 PO Last administered on at 16:37; Start 10/12/18 at 09:00 Fluvoxamine Maleate (Luvox) 25 mg HS PO Last administered on 10/15/18at 19:21; Start 10/13/18 at 21:00; Stop 10/15/18 at 23:00; Status DC Fluvoxamine Maleate (Luvox) 50 mg HS PO Last administered on 10/16/18at 19:56; Start 10/16/18 at 21:00 Olanzapine (ZyPREXA ZYDIS) 2.5 mg PRN Q2HR PRN PO PSYCHOSIS Last administered on 10/15/18at 15:54; Start 10/15/18 at 15:45 Active Scripts Active Reported Acetaminophen 500 Mg Tablet 500 Mg PO PRN Q6HRS PRN Multi-Vitamin Daily (Multivitamin) 1 Each Tablet 1 Each PO DAILY EXELON 4.6mg/24hr (Rivastigmine) 1 Each Patch.td24 1 Patch TD DAILY Mirtazapine 15 Mg Tablet 15 Mg PO QHS Clonazepam 0.5 Mg Tablet 0.25 Mg PO TID Calcium 500 + Vit D 200 Tablet (Calcium Carbonate/Vitamin D3) 1 Each Tablet 1 Each PO BID I have reviewed the current psychotropics carefully including drug interactions. Risk benefit ratio favors no change other than as noted in my dictated progress note. Diagnosis: Problems: (1) Behavioral problems (2) Elevated blood sugar level (3) Medical clearance for psychiatric admission (4) Anxiety disorder (5) Major depressive disorder, recurrent episode (6) Impulse control disorder (7) Mild cognitive impairment TIM BRUNSON MD Oct 16, 2018 22:48
[2018-10-17 06:40] VITALS: BP 146/71
[2018-10-17] MEDS: RIVASTIGMINE 4.6MG PATCH. TD SCH (09:30)
[2018-10-17] MEDS: QUEtiapine 25 MG TABLET. PO SCH ×3 (09:30→16:45)
[2018-10-17] MEDS: MULTIVITAMIN with MINERAL TABLET. PO SCH (09:30)
[2018-10-17] MEDS: CALCIUM CARB/VIT D3 500/200 TABLET PO SCH ×2 (09:30→20:06)
[2018-10-17] MEDS: clonazePAM 0.5 MG TABLET PO SCH ×3 (09:32→20:06)
[2018-10-17 16:27] VITALS: BP 126/80
[2018-10-17] MEDS: MIRTAZAPINE 15 MG TABLET PO SCH (20:06)
--- NOTE | 2018-10-17 20:46 | PN ---
DATE: 10/14/2018 PSYCHIATRIC PROGRESS NOTE This late entry 10/14/2018 covers elements not covered in my initial note. SUBJECTIVE: I met with the patient in the evening. The patient slept 6-1/2 hours previous night. She has been obsessive, anxious about her and her clothes, wandering rapidly up and down the hallway, repetitive in her questions to nursing staff and to me as I visited with her at some length. She has vague somatic symptoms. No CV, , pulmonary, eye, ENT system symptoms on review. MENTAL STATUS EXAM: Oriented to herself and situation. Speech coherent, rapid at times. Abstraction fair, computation impaired, language function intact, attention span short. Mood and affect remains extremely anxious, labile. LABORATORY DATA: Reviewed. IMPRESSION: Unchanged from initial note. PLAN: No change from initial note and we will continue to adjust the Seroquel, Luvox and consider BuSpar for anxiety. Maintain Klonopin for now. TIM BRUNSON MD DR: FLYNN/mitzi JOB#: [id number] / [id number]
--- NOTE | 2018-10-17 22:26 | PN ---
DATE: 10/15/2018 PSYCHIATRIC PROGRESS NOTE This late entry 10/15/2018 covers elements not covered in my initial note. SUBJECTIVE: I met with the patient in the evening. The patient slept 7-3/4 hours previous night. She remains extremely anxious, restless. Received Zyprexa at 4:00 p.m. somewhat obsessive, forgetful, but less so than the day before. REVIEW OF SYSTEMS: No CV, , pulmonary, eye, ENT system symptoms on review. MENTAL STATUS EXAM: Oriented to herself and situation. Speech is coherent, less pressured. Abstraction fair, computation impaired, language function intact, attention span short. Mood and affect less anxious and labile. LABORATORY DATA: Reviewed. IMPRESSION: Unchanged from initial note. PLAN: No change from initial note. Adjust the Luvox gradually and Seroquel. MAN Rashad BRUNSON MD DR: FLYNN/mitzi JOB#: [id number] / [id number]
--- NOTE | 2018-10-17 22:28 | PN ---
DATE: 10/16/2018 PSYCHIATRIC PROGRESS NOTE This late entry 10/16/2018 covers elements not covered in my initial note. SUBJECTIVE: I met with the patient in the evening. The patient slept 7-1/2 hours previous night. She has been less anxious per nursing report, more redirectable. REVIEW OF SYSTEMS: No CV, , pulmonary, eye, ENT system symptoms on review. Reliability varies. MENTAL STATUS EXAM: Oriented to herself and situation. Speech coherent, less pressured. Abstraction fair, computation impaired, language function intact, attention span short. Mood and affect is improved. LABORATORY DATA: Reviewed. IMPRESSION: Unchanged from initial note. PLAN: No change from initial note, may need to increase Luvox further. MAN Rashad BRUNSON MD DR: FLYNN/mitzi JOB#: [id number] / [id number]
--- NOTE | 2018-10-17 22:59 | PDOC ---
Exam Note: Yifan Note: Please also refer to the separate dictated note~for this date of service dictated separately.~Patient seen individually. Discussed the patient with Nursing staff reviewed the chart.~Reviewed interim history and current functioning. Reviewed vital signs,~Labs/ Radiology~and current medications noted below. Continue current treatment with the changes noted in the dictated addendum note Assessment: Vital Signs: Vital Signs Date Time Temp Pulse Resp B/P (MAP) Pulse Ox O2 Delivery O2 Flow Rate FiO2 10/17/18 16:27 98.9 74 22 126/80 (95) 98 10/14/18 16:06 Room Air I&O Intake and Output 10/17/18 06:59 Intake Total 960 ml Balance 960 ml Intake Oral 960 ml # Bowel Movements 1 Current Medications: Meds: Current Medications Clonazepam (KlonoPIN) 0.25 mg TID PO Last administered on 10/17/18 20:06; Start 10/10/18 at 21:00 Mirtazapine (Remeron) 15 mg QHS PO Last administered on 10/17/18 20:06; Start 10/10/18 at 21:00 Rivastigmine (Exelon) 1 patch DAILY TD Last administered on 10/17/18 09:30; Start 10/11/18 at 09:00 Calcium/Vitamin D (Oscal D 500mg/ 200uts) 1 tab BID PO Last administered on 10/17 20:06; Start 10/10/18 at 21:00 Acetaminophen (Tylenol) 500 mg PRN Q6HRS PRN PO PAIN / TEMP Last administered on 10/10/18at 22:45; Start 10/10/18 at 19:45 Multivitamins/ Calcium (Thera-M Plus) 1 tab DAILY PO Last administered on 09:30; Start 10/11/18 at 09:00 Acetaminophen (Tylenol) 650 mg PRN Q6HRS PRN PO PAIN / TEMP; Start 10/10/18 at 23:00; Stop 10/10/18 at 23:00; Status DC Multi-Ingredient Ointment (Analgesic [place]) 1 liu PRN QID PRN TP MUSCLE PAIN; Start 10/10/18 at 23:00 Al Hydroxide/Mg Hydroxide (Mylanta Plus Xs) 15 ml PRN AFTMEALHC PRN PO DYSPEPSIA; Start 10/10/18 at 23:00 Magnesium Hydroxide (Milk Of Magnesia) 2,400 mg PRN QHS PRN PO CONSTIPATION; Start 10/10/18 at 23:00 Dextrose 12.5 gm PRN Q15MIN PRN IV SEE COMMENTS; Start 10/11/18 at 14:00 Quetiapine Fumarate (SEROquel) 12.5 mg 0900,1300,1700 PO Last administered on at 16:45; Start 10/12/18 at 09:00 Fluvoxamine Maleate (Luvox) 25 mg HS PO Last administered on 10/15/18at 19:21; Start 10/13/18 at 21:00; Stop 10/15/18 at 23:00; Status DC Fluvoxamine Maleate (Luvox) 50 mg HS PO Last administered on 10/17/18at 20:06; Start 10/16/18 at 21:00 Olanzapine (ZyPREXA ZYDIS) 2.5 mg PRN Q2HR PRN PO PSYCHOSIS Last administered on 10/15/18at 15:54; Start 10/15/18 at 15:45 Active Scripts Active Reported Acetaminophen 500 Mg Tablet 500 Mg PO PRN Q6HRS PRN Multi-Vitamin Daily (Multivitamin) 1 Each Tablet 1 Each PO DAILY EXELON 4.6mg/24hr (Rivastigmine) 1 Each Patch.td24 1 Patch TD DAILY Mirtazapine 15 Mg Tablet 15 Mg PO QHS Clonazepam 0.5 Mg Tablet 0.25 Mg PO TID Calcium 500 + Vit D 200 Tablet (Calcium Carbonate/Vitamin D3) 1 Each Tablet 1 Each PO BID I have reviewed the current psychotropics carefully including drug interactions. Risk benefit ratio favors no change other than as noted in my dictated progress note. Diagnosis: Problems: (1) Behavioral problems (2) Elevated blood sugar level (3) Medical clearance for psychiatric admission (4) Anxiety disorder (5) Major depressive disorder, recurrent episode (6) Impulse control disorder (7) Mild cognitive impairment TIM BRUNSON MD Oct 17, 2018 22:59
[2018-10-18 06:10] VITALS: BP 134/76
[2018-10-18] MEDS: MULTIVITAMIN with MINERAL TABLET. PO SCH (08:40)
[2018-10-18] MEDS: CALCIUM CARB/VIT D3 500/200 TABLET PO SCH ×2 (08:40→20:52)
[2018-10-18] MEDS: QUEtiapine 25 MG TABLET. PO SCH ×3 (08:41→17:04)
[2018-10-18] MEDS: RIVASTIGMINE 4.6MG PATCH. TD SCH (08:42)
[2018-10-18] MEDS: clonazePAM 0.5 MG TABLET PO SCH ×3 (08:43→20:54)
[2018-10-18 15:51] VITALS: BP 108/62
[2018-10-18] MEDS: MIRTAZAPINE 15 MG TABLET PO SCH (20:52)
--- NOTE | 2018-10-18 22:42 | PDOC ---
Exam Note: Yifan Note: Please also refer to the separate dictated note~for this date of service dictated separately.~Patient seen individually. Discussed the patient with Nursing staff reviewed the chart.~Reviewed interim history and current functioning. Reviewed vital signs,~Labs/ Radiology~and current medications noted below. Continue current treatment with the changes noted in the dictated addendum note Assessment: Vital Signs: Vital Signs Date Time Temp Pulse Resp B/P (MAP) Pulse Ox O2 Delivery O2 Flow Rate FiO2 10/18/18 15:51 97.7 82 16 108/62 (77) 97 Room Air I&O Intake and Output 10/18/18 07:00 Intake Total 840 ml Balance 840 ml Intake Oral 840 ml # Voids 1 Current Medications: Meds: Current Medications Clonazepam (KlonoPIN) 0.25 mg TID PO Last administered on 10/18/18 20:54; Start 10/10/18 at 21:00 Mirtazapine (Remeron) 15 mg QHS PO Last administered on 10/18/18 20:52; Start 10/10/18 at 21:00 Rivastigmine (Exelon) 1 patch DAILY TD Last administered on 10/18/18 08:42; Start 10/11/18 at 09:00 Calcium/Vitamin D (Oscal D 500mg/ 200uts) 1 tab BID PO Last administered on 10/18 20:52; Start 10/10/18 at 21:00 Acetaminophen (Tylenol) 500 mg PRN Q6HRS PRN PO PAIN / TEMP Last administered on 10/10/18 22:45; Start 10/10/18 at 19:45 Multivitamins/ Calcium (Thera-M Plus) 1 tab DAILY PO Last administered on 08:40; Start 10/11/18 at 09:00 Acetaminophen (Tylenol) 650 mg PRN Q6HRS PRN PO PAIN / TEMP; Start 10/10/18 at 23:00; Stop 10/10/18 at 23:00; Status DC Multi-Ingredient Ointment (Analgesic [place]) 1 liu PRN QID PRN TP MUSCLE PAIN; Start 10/10/18 at 23:00 Al Hydroxide/Mg Hydroxide (Mylanta Plus Xs) 15 ml PRN AFTMEALHC PRN PO DYSPEPSIA; Start 10/10/18 at 23:00 Magnesium Hydroxide (Milk Of Magnesia) 2,400 mg PRN QHS PRN PO CONSTIPATION; Start 10/10/18 at 23:00 Dextrose 12.5 gm PRN Q15MIN PRN IV SEE COMMENTS; Start 10/11/18 at 14:00 Quetiapine Fumarate (SEROquel) 12.5 mg 0900,1300,1700 PO Last administered on 17:04; Start 10/12/18 at 09:00 Fluvoxamine Maleate (Luvox) 25 mg HS PO Last administered on 10/15/18at 19:21; Start 10/13/18 at 21:00; Stop 10/15/18 at 23:00; Status DC Fluvoxamine Maleate (Luvox) 50 mg HS PO Last administered on 10/18/18at 20:52; Start 10/16/18 at 21:00 Olanzapine (ZyPREXA ZYDIS) 2.5 mg PRN Q2HR PRN PO PSYCHOSIS Last administered on 10/15/18at 15:54; Start 10/15/18 at 15:45 Active Scripts Active Reported Acetaminophen 500 Mg Tablet 500 Mg PO PRN Q6HRS PRN Multi-Vitamin Daily (Multivitamin) 1 Each Tablet 1 Each PO DAILY EXELON 4.6mg/24hr (Rivastigmine) 1 Each Patch.td24 1 Patch TD DAILY Mirtazapine 15 Mg Tablet 15 Mg PO QHS Clonazepam 0.5 Mg Tablet 0.25 Mg PO TID Calcium 500 + Vit D 200 Tablet (Calcium Carbonate/Vitamin D3) 1 Each Tablet 1 Each PO BID I have reviewed the current psychotropics carefully including drug interactions. Risk benefit ratio favors no change other than as noted in my dictated progress note. Diagnosis: Problems: (1) Behavioral problems (2) Elevated blood sugar level (3) Medical clearance for psychiatric admission (4) Anxiety disorder (5) Major depressive disorder, recurrent episode (6) Impulse control disorder (7) Mild cognitive impairment TIM BRUNSON MD Oct 18, 2018 22:42
--- NOTE | 2018-10-19 03:31 | PN ---
DATE: 10/17/2018 This late entry for 10/17/2018 covers elements not covered in my initial note. SUBJECTIVE: I met with the patient in the evening. The patient slept 6-1/2 hours previous night. She has been anxious, restless, but much less than before. She has been less obsessed about leaving, less obsessive about calling her all of which is a positive improvement. REVIEW OF SYSTEMS: No CV, , pulmonary, eye system symptoms on review. Reliability varies. MENTAL STATUS EXAM: Oriented to herself and situation. Speech coherent, less pressured. Abstraction fair, computation impaired, language function intact. Mood and affect showing improvement. LABORATORY DATA: Reviewed. IMPRESSION: Unchanged from initial note. PLAN: No change from initial note. We will continue to gradually increase the Luvox. MAN Rashad BRUNSON MD DR: FLYNN/mitzi JOB#: [id number] / [id number]
[2018-10-19 05:50] VITALS: BP 162/74
[2018-10-19] MEDS: MULTIVITAMIN with MINERAL TABLET. PO SCH (07:21)
[2018-10-19] MEDS: RIVASTIGMINE 4.6MG PATCH. TD SCH (07:21)
[2018-10-19] MEDS: QUEtiapine 25 MG TABLET. PO SCH ×3 (07:22→17:15)
[2018-10-19] MEDS: CALCIUM CARB/VIT D3 500/200 TABLET PO SCH ×2 (07:22→19:49)
[2018-10-19] MEDS: clonazePAM 0.5 MG TABLET PO SCH ×3 (07:24→19:50)
[2018-10-19 16:49] VITALS: BP 112/72
[2018-10-19] MEDS: MIRTAZAPINE 15 MG TABLET PO SCH (19:49)
--- NOTE | 2018-10-19 21:50 | PN ---
DATE: 10/18/2018 PSYCHIATRIC PROGRESS NOTE This late entry 10/18/2018 covers elements not covered in my initial note. SUBJECTIVE: I met with the patient in the evening. The patient slept 5-3/4 hours previous night. She was quite less anxious and more redirectable, pleasant, previous night, fixated on discharge. Today on 10/18/2018 she is fixated on laundry and irrelevant things somewhat obsessive, anxious, but overall improved. No CV, , pulmonary, eye system symptoms on review. MENTAL STATUS EXAM: Oriented to herself and situation. Speech coherent, rapid at times. Abstraction fair, computation impaired, language function intact, attention span short. Mood and affect still somewhat anxious, obsessive, less so than before. LABORATORY DATA: Reviewed. IMPRESSION: Unchanged from initial note. PLAN: No change from initial note. MAN Rashad BRUNSON MD DR: FLYNN/mitzi JOB#: [id number] / [id number]
--- NOTE | 2018-10-19 22:35 | PDOC ---
Exam Note: Yifan Note: Please also refer to the separate dictated note~for this date of service dictated separately.~Patient seen individually. Discussed the patient with Nursing staff reviewed the chart.~Reviewed interim history and current functioning. Reviewed vital signs,~Labs/ Radiology~and current medications noted below. Continue current treatment with the changes noted in the dictated addendum note Assessment: Vital Signs: Vital Signs Date Time Temp Pulse Resp B/P (MAP) Pulse Ox O2 Delivery O2 Flow Rate FiO2 10/19/18 16:49 99.1 90 16 112/72 (85) 100 10/18/18 15:51 Room Air I&O Intake and Output 10/19/18 07:00 Intake Total 1440 ml Balance 1440 ml Intake Oral 1440 ml Current Medications: Meds: Current Medications Clonazepam (KlonoPIN) 0.25 mg TID PO Last administered on 10/19/18 19:50; Start 10/10/18 at 21:00 Mirtazapine (Remeron) 15 mg QHS PO Last administered on 10/19/18 19:49; Start 10/10/18 at 21:00 Rivastigmine (Exelon) 1 patch DAILY TD Last administered on 10/19/18 07:21; Start 10/11/18 at 09:00 Calcium/Vitamin D (Oscal D 500mg/ 200uts) 1 tab BID PO Last administered on 10/19 19:49; Start 10/10/18 at 21:00 Acetaminophen (Tylenol) 500 mg PRN Q6HRS PRN PO PAIN / TEMP Last administered on 10/10/18 22:45; Start 10/10/18 at 19:45 Multivitamins/ Calcium (Thera-M Plus) 1 tab DAILY PO Last administered on 07:21; Start 10/11/18 at 09:00 Acetaminophen (Tylenol) 650 mg PRN Q6HRS PRN PO PAIN / TEMP; Start 10/10/18 at 23:00; Stop 10/10/18 at 23:00; Status DC Multi-Ingredient Ointment (Analgesic [place]) 1 liu PRN QID PRN TP MUSCLE PAIN; Start 10/10/18 at 23:00 Al Hydroxide/Mg Hydroxide (Mylanta Plus Xs) 15 ml PRN AFTMEALHC PRN PO DYSPEPSIA; Start 10/10/18 at 23:00 Magnesium Hydroxide (Milk Of Magnesia) 2,400 mg PRN QHS PRN PO CONSTIPATION; Start 10/10/18 at 23:00 Dextrose 12.5 gm PRN Q15MIN PRN IV SEE COMMENTS; Start 10/11/18 at 14:00 Quetiapine Fumarate (SEROquel) 12.5 mg 0900,1300,1700 PO Last administered on at 17:15; Start 10/12/18 at 09:00 Fluvoxamine Maleate (Luvox) 25 mg HS PO Last administered on 10/15/18 19:21; Start 10/13/18 at 21:00; Stop 10/15/18 at 23:00; Status DC Fluvoxamine Maleate (Luvox) 50 mg HS PO Last administered on 10/19/18at 19:49; Start 10/16/18 at 21:00 Olanzapine (ZyPREXA ZYDIS) 2.5 mg PRN Q2HR PRN PO PSYCHOSIS Last administered on 10/19/18at 20:24; Start 10/15/18 at 15:45 Active Scripts Active Reported Acetaminophen 500 Mg Tablet 500 Mg PO PRN Q6HRS PRN Multi-Vitamin Daily (Multivitamin) 1 Each Tablet 1 Each PO DAILY EXELON 4.6mg/24hr (Rivastigmine) 1 Each Patch.td24 1 Patch TD DAILY Mirtazapine 15 Mg Tablet 15 Mg PO QHS Clonazepam 0.5 Mg Tablet 0.25 Mg PO TID Calcium 500 + Vit D 200 Tablet (Calcium Carbonate/Vitamin D3) 1 Each Tablet 1 Each PO BID I have reviewed the current psychotropics carefully including drug interactions. Risk benefit ratio favors no change other than as noted in my dictated progress note. Diagnosis: Problems: (1) Behavioral problems (2) Elevated blood sugar level (3) Medical clearance for psychiatric admission (4) Anxiety disorder (5) Major depressive disorder, recurrent episode (6) Impulse control disorder (7) Mild cognitive impairment TIM BRUNSON MD Oct 19, 2018 22:35
[2018-10-20 06:04] VITALS: BP 143/79
[2018-10-20] MEDS: RIVASTIGMINE 4.6MG PATCH. TD SCH (08:29)
[2018-10-20] MEDS: MULTIVITAMIN with MINERAL TABLET. PO SCH (08:30)
[2018-10-20] MEDS: CALCIUM CARB/VIT D3 500/200 TABLET PO SCH ×2 (08:30→20:33)
[2018-10-20] MEDS: QUEtiapine 25 MG TABLET. PO SCH ×3 (08:31→16:56)
[2018-10-20] MEDS: clonazePAM 0.5 MG TABLET PO SCH ×3 (08:32→20:34)
[2018-10-20 16:15] VITALS: BP 128/79
[2018-10-20] MEDS: MIRTAZAPINE 15 MG TABLET PO SCH (20:33)
--- NOTE | 2018-10-20 22:43 | PDOC ---
Exam Note: Yifan Note: Please also refer to the separate dictated note~for this date of service dictated separately.~Patient seen individually. Discussed the patient with Nursing staff reviewed the chart.~Reviewed interim history and current functioning. Reviewed vital signs,~Labs/ Radiology~and current medications noted below. Continue current treatment with the changes noted in the dictated addendum note Assessment: Vital Signs: Vital Signs Date Time Temp Pulse Resp B/P (MAP) Pulse Ox O2 Delivery O2 Flow Rate FiO2 10/20/18 16:15 98.4 98 20 128/79 (95) 99 Room Air I&O Intake and Output 10/20/18 07:00 Intake Total 1200 ml Balance 1200 ml Intake Oral 1200 ml Current Medications: Meds: Current Medications Clonazepam (KlonoPIN) 0.25 mg TID PO Last administered on 10/20/18 20:34; Start 10/10/18 at 21:00 Mirtazapine (Remeron) 15 mg QHS PO Last administered on 10/20/18 20:33; Start 10/10/18 at 21:00 Rivastigmine (Exelon) 1 patch DAILY TD Last administered on 10/20/18 08:29; Start 10/11/18 at 09:00; Stop 10/20/18 at 11:26; Status DC Calcium/Vitamin D (Oscal D 500mg/ 200uts) 1 tab BID PO Last administered on 10/20 20:33; Start 10/10/18 at 21:00 Acetaminophen (Tylenol) 500 mg PRN Q6HRS PRN PO PAIN / TEMP Last administered on 10/10/18 22:45; Start 10/10/18 at 19:45 Multivitamins/ Calcium (Thera-M Plus) 1 tab DAILY PO Last administered on 08:30; Start 10/11/18 at 09:00 Acetaminophen (Tylenol) 650 mg PRN Q6HRS PRN PO PAIN / TEMP; Start 10/10/18 at 23:00; Stop 10/10/18 at 23:00; Status DC Multi-Ingredient Ointment (Analgesic [place]) 1 liu PRN QID PRN TP MUSCLE PAIN; Start 10/10/18 at 23:00 Al Hydroxide/Mg Hydroxide (Mylanta Plus Xs) 15 ml PRN AFTMEALHC PRN PO DYSPEPSIA; Start 10/10/18 at 23:00 Magnesium Hydroxide (Milk Of Magnesia) 2,400 mg PRN QHS PRN PO CONSTIPATION; Start 10/10/18 at 23:00 Dextrose 12.5 gm PRN Q15MIN PRN IV SEE COMMENTS; Start 10/11/18 at 14:00 Quetiapine Fumarate (SEROquel) 12.5 mg 0900,1300,1700 PO Last administered on 17:15; Start 10/12/18 at 09:00; Stop 10/20/18 at 07:47; Status DC Fluvoxamine Maleate (Luvox) 25 mg HS PO Last administered on 10/15/18at 19:21; Start 10/13/18 at 21:00; Stop 10/15/18 at 23:00; Status DC Fluvoxamine Maleate (Luvox) 50 mg HS PO Last administered on 10/20/18 20:33; Start 10/16/18 at 21:00 Olanzapine (ZyPREXA ZYDIS) 2.5 mg PRN Q2HR PRN PO PSYCHOSIS Last administered on 10/19/18 20:24; Start 10/15/18 at 15:45 Quetiapine Fumarate (SEROquel) 12.5 mg BID@1300,1700 PO Last administered on 10/20/18at 16:56; Start 10/20/18 at 13:00 Quetiapine Fumarate (SEROquel) 25 mg DAILY PO Last administered on 10/20/18at 08: 31; Start 10/20/18 at 09:00 Rivastigmine (Exelon) 1 patch DAILY TD ; Start 10/21/18 at 09:00 Active Scripts Active Reported Acetaminophen 500 Mg Tablet 500 Mg PO PRN Q6HRS PRN Multi-Vitamin Daily (Multivitamin) 1 Each Tablet 1 Each PO DAILY EXELON 4.6mg/24hr (Rivastigmine) 1 Each Patch.td24 1 Patch TD DAILY Mirtazapine 15 Mg Tablet 15 Mg PO QHS Clonazepam 0.5 Mg Tablet 0.25 Mg PO TID Calcium 500 + Vit D 200 Tablet (Calcium Carbonate/Vitamin D3) 1 Each Tablet 1 Each PO BID I have reviewed the current psychotropics carefully including drug interactions. Risk benefit ratio favors no change other than as noted in my dictated progress note. Diagnosis: Problems: (1) Behavioral problems (2) Elevated blood sugar level (3) Medical clearance for psychiatric admission (4) Anxiety disorder (5) Major depressive disorder, recurrent episode (6) Impulse control disorder (7) Mild cognitive impairment TIM BRUNSON MD Oct 20, 2018 22:43
[2018-10-21 05:39] VITALS: BP 144/79
[2018-10-21] MEDS: MULTIVITAMIN with MINERAL TABLET. PO SCH (08:05)
[2018-10-21] MEDS: QUEtiapine 25 MG TABLET. PO SCH ×3 (08:05→18:03)
[2018-10-21] MEDS: CALCIUM CARB/VIT D3 500/200 TABLET PO SCH ×2 (08:05→20:43)
[2018-10-21] MEDS: clonazePAM 0.5 MG TABLET PO SCH ×3 (08:07→20:43)
[2018-10-21] MEDS: RIVASTIGMINE 9.5MG PATCH. TD SCH (08:09)
[2018-10-21] MEDS: ACETAMINOPHEN 500 MG TABLET PO PRN (10:42)
[2018-10-21 16:33] VITALS: BP 136/80
--- NOTE | 2018-10-21 18:33 | PN ---
DATE: 10/19/2018 PSYCHIATRIC PROGRESS NOTE This late entry 10/19/2018 covers elements not covered in my initial note. SUBJECTIVE: I met with the patient in the evening. The patient slept 8-1/4 hours previous night. The patient remains walking fast up and down the hallway on the unit, somewhat anxious, repetitive about discharge plans and I discussed with her at length individually. She wants her medications explained and I went through everything with her on each of her psychotropic, indication, side effects. REVIEW OF SYSTEMS: Vague somatic symptoms. No CV, , pulmonary, eye system symptoms on review. MENTAL STATUS EXAM: Oriented to herself and situation. Speech coherent, pressured, but less so than before. Abstraction fair, computation impaired, language function intact, attention span short. Mood and affect somewhat anxious, labile, but improved. LABORATORY DATA: Reviewed. IMPRESSION: Unchanged from initial note. PLAN: No change from initial note. She is currently on Seroquel 12.5 mg at 0900, we will increase it to 25 mg. Continue the 1300 at 12.5 mg and 1700 at 12.5 mg and Luvox is being increased gradually, maintain Remeron and Klonopin. TIM BRUNSON MD DR: FLYNN/mitzi JOB#: [id number] / [id number]
[2018-10-21] MEDS: MIRTAZAPINE 15 MG TABLET PO SCH (20:43)
--- NOTE | 2018-10-21 22:38 | PDOC ---
Exam Note: Yifan Note: Please also refer to the separate dictated note~for this date of service dictated separately.~Patient seen individually. Discussed the patient with Nursing staff reviewed the chart.~Reviewed interim history and current functioning. Reviewed vital signs,~Labs/ Radiology~and current medications noted below. Continue current treatment with the changes noted in the dictated addendum note Assessment: Vital Signs: Vital Signs Date Time Temp Pulse Resp B/P (MAP) Pulse Ox O2 Delivery O2 Flow Rate FiO2 10/21/18 16:33 97.0 73 16 136/80 (98) 98 10/21/18 05:39 Room Air I&O Intake and Output 10/21/18 07:00 Intake Total 860 ml Balance 860 ml Intake Oral 860 ml Current Medications: Meds: Current Medications Clonazepam (KlonoPIN) 0.25 mg TID PO Last administered on 10/21/18 20:43; Start 10/10/18 at 21:00 Mirtazapine (Remeron) 15 mg QHS PO Last administered on 10/21/18 20:43; Start 10/10/18 at 21:00 Rivastigmine (Exelon) 1 patch DAILY TD Last administered on 10/20/18 08:29; Start 10/11/18 at 09:00; Stop 10/20/18 at 11:26; Status DC Calcium/Vitamin D (Oscal D 500mg/ 200uts) 1 tab BID PO Last administered on 10/21 20:43; Start 10/10/18 at 21:00 Acetaminophen (Tylenol) 500 mg PRN Q6HRS PRN PO PAIN / TEMP Last administered on 10/21/18 10:42; Start 10/10/18 at 19:45 Multivitamins/ Calcium (Thera-M Plus) 1 tab DAILY PO Last administered on 08:05; Start 10/11/18 at 09:00 Acetaminophen (Tylenol) 650 mg PRN Q6HRS PRN PO PAIN / TEMP; Start 10/10/18 at 23:00; Stop 10/10/18 at 23:00; Status DC Multi-Ingredient Ointment (Analgesic [place]) 1 liu PRN QID PRN TP MUSCLE PAIN; Start 10/10/18 at 23:00 Al Hydroxide/Mg Hydroxide (Mylanta Plus Xs) 15 ml PRN AFTMEALHC PRN PO DYSPEPSIA; Start 10/10/18 at 23:00 Magnesium Hydroxide (Milk Of Magnesia) 2,400 mg PRN QHS PRN PO CONSTIPATION; Start 10/10/18 at 23:00 Dextrose 12.5 gm PRN Q15MIN PRN IV SEE COMMENTS; Start 10/11/18 at 14:00 Quetiapine Fumarate (SEROquel) 12.5 mg 0900,1300,1700 PO Last administered on 17:15; Start 10/12/18 at 09:00; Stop 10/20/18 at 07:47; Status DC Fluvoxamine Maleate (Luvox) 25 mg HS PO Last administered on 10/15/18 19:21; Start 10/13/18 at 21:00; Stop 10/15/18 at 23:00; Status DC Fluvoxamine Maleate (Luvox) 50 mg HS PO Last administered on 10/21/18 20:43; Start 10/16/18 at 21:00 Olanzapine (ZyPREXA ZYDIS) 2.5 mg PRN Q2HR PRN PO PSYCHOSIS Last administered on 10/19/18 20:24; Start 10/15/18 at 15:45 Quetiapine Fumarate (SEROquel) 12.5 mg BID@1300,1700 PO Last administered on 18:03; Start 10/20/18 at 13:00 Quetiapine Fumarate (SEROquel) 25 mg DAILY PO Last administered on 10/21/18 08: 05; Start 10/20/18 at 09:00 Rivastigmine (Exelon) 1 patch DAILY TD Last administered on 10/21/18 08:09; Start 10/21/18 at 09:00 Active Scripts Active Reported Acetaminophen 500 Mg Tablet 500 Mg PO PRN Q6HRS PRN Multi-Vitamin Daily (Multivitamin) 1 Each Tablet 1 Each PO DAILY EXELON 4.6mg/24hr (Rivastigmine) 1 Each Patch.td24 1 Patch TD DAILY Mirtazapine 15 Mg Tablet 15 Mg PO QHS Clonazepam 0.5 Mg Tablet 0.25 Mg PO TID Calcium 500 + Vit D 200 Tablet (Calcium Carbonate/Vitamin D3) 1 Each Tablet 1 Each PO BID I have reviewed the current psychotropics carefully including drug interactions. Risk benefit ratio favors no change other than as noted in my dictated progress note. Diagnosis: Problems: (1) Behavioral problems (2) Elevated blood sugar level (3) Medical clearance for psychiatric admission (4) Anxiety disorder (5) Major depressive disorder, recurrent episode (6) Impulse control disorder (7) Mild cognitive impairment TIM BRUNSON MD Oct 21, 2018 22:38
[2018-10-22 06:09] VITALS: BP 128/65
[2018-10-22 07:31] LABS: BASO % 1 % (0-3); EOS # 0.2 x10^3/uL (0.0-0.7); EOS % 5 % (0-3); HEMATOCRIT 36.8 % (36.0-47.0); HEMOGLOBIN 12.6 g/dL (12.0-15.5); LYMPH # 1.3 x10^3/uL (1.0-4.8); LYMPH % 30 % (24-48); MEAN CORPUSCULAR HEMOGLOBIN 30 pg (25-35); MEAN CORPUSCULAR HGB CONC 34 g/dL (31-37); MEAN CORPUSCULAR VOLUME 88 fL (79-100); MONO # 0.6 x10^3/uL (0.0-1.1); MONO % 13 % (0-9); NEUT # 2.3 x10^3uL (1.8-7.7); NEUT % 52 % (31-73); PLATELET COUNT 214 x10^3/uL (140-400); RED BLOOD COUNT 4.19 x10^6/uL (3.50-5.40); RED CELL DISTRIBUTION WIDTH 13.3 % (11.5-14.5); WHITE BLOOD COUNT 4.4 x10^3/uL (4.0-11.0)
[2018-10-22 07:53] LABS: ALBUMIN 3.3 g/dL (3.4-5.0); CALCIUM 9.6 mg/dL (8.5-10.1); GFR 52.2; POTASSIUM 4.3 mmol/L (3.5-5.1); TOTAL BILIRUBIN 0.3 mg/dL (0.2-1.0); TOTAL PROTEIN 6.5 g/dL (6.4-8.2)
[2018-10-22] MEDS: CALCIUM CARB/VIT D3 500/200 TABLET PO SCH ×2 (08:32→19:32)
[2018-10-22] MEDS: MULTIVITAMIN with MINERAL TABLET. PO SCH (08:32)
[2018-10-22] MEDS: QUEtiapine 25 MG TABLET. PO SCH ×3 (08:32→16:36)
[2018-10-22] MEDS: RIVASTIGMINE 9.5MG PATCH. TD SCH (08:32)
[2018-10-22] MEDS: clonazePAM 0.5 MG TABLET PO SCH ×3 (08:34→19:33)
[2018-10-22 16:57] VITALS: BP 125/71
[2018-10-22] MEDS: MIRTAZAPINE 15 MG TABLET PO SCH (19:32)
--- NOTE | 2018-10-22 22:17 | PN ---
DATE: 10/20/2018 PSYCHIATRIC PROGRESS NOTE This late entry 10/20/2018 covers elements not covered in my initial note. SUBJECTIVE: I met with the patient in the evening, staffed at a treatment team meeting with the entire team earlier in the day. The patient has been less obsessive and anxious, less irritable. Sleeping about 7 hours. Appetite 90%. REVIEW OF SYSTEMS: No CV, , pulmonary, eye system symptoms on review. MENTAL STATUS EXAM: Oriented to herself and situation. Speech coherent, pressured, less so than before. Abstraction fair, computation impaired, language function intact, attention span short. Mood and affect, anxious, labile, but better than before. LABORATORY DATA: Reviewed. IMPRESSION: Unchanged from initial note. PLAN: Increase the Exelon patch from 9.5 mg a day after she has been on 4.6 for 5 days. Rest unchanged per initial note. MAN Rashad BRUNSNO MD DR: FLYNN/mitzi JOB#: [id number] / [id number]
[2018-10-23 05:43] VITALS: BP 122/63
[2018-10-23] MEDS: QUEtiapine 25 MG TABLET. PO SCH ×3 (08:14→18:13)
[2018-10-23] MEDS: RIVASTIGMINE 9.5MG PATCH. TD SCH (08:14)
[2018-10-23] MEDS: MULTIVITAMIN with MINERAL TABLET. PO SCH (08:14)
[2018-10-23] MEDS: CALCIUM CARB/VIT D3 500/200 TABLET PO SCH ×2 (08:14→19:44)
[2018-10-23] MEDS: clonazePAM 0.5 MG TABLET PO SCH ×3 (08:16→19:45)
--- NOTE | 2018-10-23 09:49 | PDOC ---
Exam Note: Yifan Note: Late entry for DOS 10/22/2018. Please also refer to the separate dictated note~ for this date of service dictated separately.~Patient seen individually. Discussed the patient with Nursing staff reviewed the chart.~Reviewed interim history and current functioning. Reviewed vital signs,~Labs/ Radiology~and current medications noted below. Continue current treatment with the changes noted in the dictated addendum note Assessment: Vital Signs: VS - Last 72 Hours, by Label Date Time Temp Pulse Resp B/P (MAP) Pulse Ox O2 Delivery O2 Flow Rate FiO2 10/23/18 05:43 98.0 65 20 122/63 (82) 93 10/22/18 16:57 98.1 82 18 125/71 (89) 96 Room Air 10/22/18 06:09 97.6 65 16 128/65 (86) 97 10/21/18 16:33 97.0 73 16 136/80 (98) 98 10/21/18 05:39 98.6 76 18 144/79 (100) 96 Room Air 10/20/18 16:15 98.4 98 20 128/79 (95) 99 Room Air Vital Signs Date Time Temp Pulse Resp B/P (MAP) Pulse Ox O2 Delivery O2 Flow Rate FiO2 10/23/18 05:43 98.0 65 20 122/63 (82) 93 10/22/18 16:57 Room Air I&O Intake and Output 10/23/18 06:59 Intake Total 1740 ml Balance 1740 ml Intake Oral 1740 ml # Voids 1 Current Medications: Meds: Current Medications Clonazepam (KlonoPIN) 0.25 mg TID PO Last administered on 10/23/18 08:16; Start 10/10/18 at 21:00 Mirtazapine (Remeron) 15 mg QHS PO Last administered on 10/22/18 19:32; Start 10/10/18 at 21:00 Rivastigmine (Exelon) 1 patch DAILY TD Last administered on 10/20/18 08:29; Start 10/11/18 at 09:00; Stop 10/20/18 at 11:26; Status DC Calcium/Vitamin D (Oscal D 500mg/ 200uts) 1 tab BID PO Last administered on 10/23at 08:14; Start 10/10/18 at 21:00 Acetaminophen (Tylenol) 500 mg PRN Q6HRS PRN PO PAIN / TEMP Last administered on 10/21/18at 10:42; Start 10/10/18 at 19:45 Multivitamins/ Calcium (Thera-M Plus) 1 tab DAILY PO Last administered on at 08:14; Start 10/11/18 at 09:00 Acetaminophen (Tylenol) 650 mg PRN Q6HRS PRN PO PAIN / TEMP; Start 10/10/18 at 23:00; Stop 10/10/18 at 23:00; Status DC Multi-Ingredient Ointment (Analgesic [place]) 1 liu PRN QID PRN TP MUSCLE PAIN; Start 10/10/18 at 23:00 Al Hydroxide/Mg Hydroxide (Mylanta Plus Xs) 15 ml PRN AFTMEALHC PRN PO DYSPEPSIA; Start 10/10/18 at 23:00 Magnesium Hydroxide (Milk Of Magnesia) 2,400 mg PRN QHS PRN PO CONSTIPATION; Start 10/10/18 at 23:00 Dextrose 12.5 gm PRN Q15MIN PRN IV SEE COMMENTS; Start 10/11/18 at 14:00 Quetiapine Fumarate (SEROquel) 12.5 mg 0900,1300,1700 PO Last administered on 17:15; Start 10/12/18 at 09:00; Stop 10/20/18 at 07:47; Status DC Fluvoxamine Maleate (Luvox) 25 mg HS PO Last administered on 10/15/18 19:21; Start 10/13/18 at 21:00; Stop 10/15/18 at 23:00; Status DC Fluvoxamine Maleate (Luvox) 50 mg HS PO Last administered on 10/22/18 19:32; Start 10/16/18 at 21:00 Olanzapine (ZyPREXA ZYDIS) 2.5 mg PRN Q2HR PRN PO PSYCHOSIS Last administered on 10/19/18 20:24; Start 10/15/18 at 15:45 Quetiapine Fumarate (SEROquel) 12.5 mg BID@1300,1700 PO Last administered on 16:36; Start 10/20/18 at 13:00 Quetiapine Fumarate (SEROquel) 25 mg DAILY PO Last administered on 10/23/18at 08: 14; Start 10/20/18 at 09:00 Rivastigmine (Exelon) 1 patch DAILY TD Last administered on 10/23/18at 08:14; Start 10/21/18 at 09:00 Active Scripts Active Reported Acetaminophen 500 Mg Tablet 500 Mg PO PRN Q6HRS PRN Multi-Vitamin Daily (Multivitamin) 1 Each Tablet 1 Each PO DAILY EXELON 4.6mg/24hr (Rivastigmine) 1 Each Patch.td24 1 Patch TD DAILY Mirtazapine 15 Mg Tablet 15 Mg PO QHS Clonazepam 0.5 Mg Tablet 0.25 Mg PO TID Calcium 500 + Vit D 200 Tablet (Calcium Carbonate/Vitamin D3) 1 Each Tablet 1 Each PO BID I have reviewed the current psychotropics carefully including drug interactions. Risk benefit ratio favors no change other than as noted in my dictated progress note. Diagnosis: Problems: (1) Behavioral problems (2) Elevated blood sugar level (3) Medical clearance for psychiatric admission (4) Anxiety disorder (5) Major depressive disorder, recurrent episode (6) Impulse control disorder (7) Mild cognitive impairment TIM BRUNSON MD Oct 23, 2018 09:49
--- NOTE | 2018-10-23 10:15 | PN ---
DATE: 10/21/2018 PSYCHIATRIC PROGRESS NOTE This late entry 10/21/2018 covers elements not covered in my initial note. SUBJECTIVE: I met with the patient in the evening. The patient slept 7-1/2 hours previous night. Overall, she has been less anxious and obsessive, still writing extensive and profuse notes and meniscal handwriting and I went through this at some length with her. Nevertheless, she is trying to help lower the bed rails of other patients, nursing staff redirected her. She was earlier digging in the trash per nursing report, somewhat obsessive with some hoarding behavior, but generally some improvement, slept 7-1/2 hours. REVIEW OF SYSTEMS: No CV, , pulmonary, eye, ENT system symptoms on review. MENTAL STATUS EXAM: Oriented to herself and situation. Speech coherent, rapid at times. Abstraction fair, computation impaired, language function intact, attention span short. Mood and affect remain somewhat obsessive, anxious, labile, but improved. LABORATORY DATA: Reviewed. IMPRESSION: Unchanged from initial note. PLAN: No change from initial note. TIM BRUNSON MD DR: FLYNN/mitzi JOB#: [id number] / [id number]
[2018-10-23 16:45] VITALS: BP 116/74
[2018-10-23] MEDS: MIRTAZAPINE 15 MG TABLET PO SCH (19:44)
--- NOTE | 2018-10-23 22:55 | PDOC ---
Exam Note: Yifan Note: Please also refer to the separate dictated note~for this date of service dictated separately.~Patient seen individually. Discussed the patient with Nursing staff reviewed the chart.~Reviewed interim history and current functioning. Reviewed vital signs,~Labs/ Radiology~and current medications noted below. Continue current treatment with the changes noted in the dictated addendum note Assessment: Vital Signs: Vital Signs Date Time Temp Pulse Resp B/P (MAP) Pulse Ox O2 Delivery O2 Flow Rate FiO2 10/23/18 16:45 97.2 78 18 116/74 (88) 97 10/22/18 16:57 Room Air I&O Intake and Output 10/23/18 07:00 Intake Total 1740 ml Balance 1740 ml Intake Oral 1740 ml # Voids 1 Current Medications: Meds: Current Medications Clonazepam (KlonoPIN) 0.25 mg TID PO Last administered on 10/23/18 19:45; Start 10/10/18 at 21:00 Mirtazapine (Remeron) 15 mg QHS PO Last administered on 10/23/18 19:44; Start 10/10/18 at 21:00 Rivastigmine (Exelon) 1 patch DAILY TD Last administered on 10/20/18 08:29; Start 10/11/18 at 09:00; Stop 10/20/18 at 11:26; Status DC Calcium/Vitamin D (Oscal D 500mg/ 200uts) 1 tab BID PO Last administered on 10/23 19:44; Start 10/10/18 at 21:00 Acetaminophen (Tylenol) 500 mg PRN Q6HRS PRN PO PAIN / TEMP Last administered on 10/21/18 10:42; Start 10/10/18 at 19:45 Multivitamins/ Calcium (Thera-M Plus) 1 tab DAILY PO Last administered on 08:14; Start 10/11/18 at 09:00 Acetaminophen (Tylenol) 650 mg PRN Q6HRS PRN PO PAIN / TEMP; Start 10/10/18 at 23:00; Stop 10/10/18 at 23:00; Status DC Multi-Ingredient Ointment (Analgesic [place]) 1 liu PRN QID PRN TP MUSCLE PAIN; Start 10/10/18 at 23:00 Al Hydroxide/Mg Hydroxide (Mylanta Plus Xs) 15 ml PRN AFTMEALHC PRN PO DYSPEPSIA; Start 10/10/18 at 23:00 Magnesium Hydroxide (Milk Of Magnesia) 2,400 mg PRN QHS PRN PO CONSTIPATION; Start 10/10/18 at 23:00 Dextrose 12.5 gm PRN Q15MIN PRN IV SEE COMMENTS; Start 10/11/18 at 14:00 Quetiapine Fumarate (SEROquel) 12.5 mg 0900,1300,1700 PO Last administered on 17:15; Start 10/12/18 at 09:00; Stop 10/20/18 at 07:47; Status DC Fluvoxamine Maleate (Luvox) 25 mg HS PO Last administered on 10/15/18 19:21; Start 10/13/18 at 21:00; Stop 10/15/18 at 23:00; Status DC Fluvoxamine Maleate (Luvox) 50 mg HS PO Last administered on 10/23/18 19:44; Start 10/16/18 at 21:00 Olanzapine (ZyPREXA ZYDIS) 2.5 mg PRN Q2HR PRN PO PSYCHOSIS Last administered on 10/19/18 20:24; Start 10/15/18 at 15:45 Quetiapine Fumarate (SEROquel) 12.5 mg BID@1300,1700 PO Last administered on 18:13; Start 10/20/18 at 13:00 Quetiapine Fumarate (SEROquel) 25 mg DAILY PO Last administered on 10/23/18 08: 14; Start 10/20/18 at 09:00 Rivastigmine (Exelon) 1 patch DAILY TD Last administered on 10/23/18 08:14; Start 10/21/18 at 09:00 Active Scripts Active Reported Acetaminophen 500 Mg Tablet 500 Mg PO PRN Q6HRS PRN Multi-Vitamin Daily (Multivitamin) 1 Each Tablet 1 Each PO DAILY EXELON 4.6mg/24hr (Rivastigmine) 1 Each Patch.td24 1 Patch TD DAILY Mirtazapine 15 Mg Tablet 15 Mg PO QHS Clonazepam 0.5 Mg Tablet 0.25 Mg PO TID Calcium 500 + Vit D 200 Tablet (Calcium Carbonate/Vitamin D3) 1 Each Tablet 1 Each PO BID I have reviewed the current psychotropics carefully including drug interactions. Risk benefit ratio favors no change other than as noted in my dictated progress note. Diagnosis: Problems: (1) Behavioral problems (2) Elevated blood sugar level (3) Medical clearance for psychiatric admission (4) Anxiety disorder (5) Major depressive disorder, recurrent episode (6) Impulse control disorder (7) Mild cognitive impairment TIM BRUNSON MD Oct 23, 2018 22:55
[2018-10-24 05:36] VITALS: BP 129/75
[2018-10-24] MEDS: MULTIVITAMIN with MINERAL TABLET. PO SCH (09:24)
[2018-10-24] MEDS: CALCIUM CARB/VIT D3 500/200 TABLET PO SCH ×2 (09:24→20:23)
[2018-10-24] MEDS: clonazePAM 0.5 MG TABLET PO SCH ×3 (09:24→20:24)
[2018-10-24] MEDS: QUEtiapine 25 MG TABLET. PO SCH ×3 (09:24→16:52)
[2018-10-24] MEDS: RIVASTIGMINE 9.5MG PATCH. TD SCH (09:25)
[2018-10-24 16:29] VITALS: BP 152/80
[2018-10-24] MEDS: MIRTAZAPINE 15 MG TABLET PO SCH (20:23)
--- NOTE | 2018-10-24 22:42 | PDOC ---
Exam Note: Yifan Note: Please also refer to the separate dictated note~for this date of service dictated separately.~Patient seen individually. Discussed the patient with Nursing staff reviewed the chart.~Reviewed interim history and current functioning. Reviewed vital signs,~Labs/ Radiology~and current medications noted below. Continue current treatment with the changes noted in the dictated addendum note Assessment: Vital Signs: Vital Signs Date Time Temp Pulse Resp B/P (MAP) Pulse Ox O2 Delivery O2 Flow Rate FiO2 10/24/18 16:29 97.9 67 16 152/80 (104) 99 10/22/18 16:57 Room Air I&O Intake and Output 10/24/18 06:59 Intake Total 1200 ml Balance 1200 ml Intake Oral 1200 ml # Voids 1 Current Medications: Meds: Current Medications Clonazepam (KlonoPIN) 0.25 mg TID PO Last administered on 10/24/18 20:24; Start 10/10/18 at 21:00 Mirtazapine (Remeron) 15 mg QHS PO Last administered on 10/24/18 20:23; Start 10/10/18 at 21:00 Rivastigmine (Exelon) 1 patch DAILY TD Last administered on 10/20/18 08:29; Start 10/11/18 at 09:00; Stop 10/20/18 at 11:26; Status DC Calcium/Vitamin D (Oscal D 500mg/ 200uts) 1 tab BID PO Last administered on 10/24 20:23; Start 10/10/18 at 21:00 Acetaminophen (Tylenol) 500 mg PRN Q6HRS PRN PO PAIN / TEMP Last administered on 10/21/18 10:42; Start 10/10/18 at 19:45 Multivitamins/ Calcium (Thera-M Plus) 1 tab DAILY PO Last administered on 09:24; Start 10/11/18 at 09:00 Acetaminophen (Tylenol) 650 mg PRN Q6HRS PRN PO PAIN / TEMP; Start 10/10/18 at 23:00; Stop 10/10/18 at 23:00; Status DC Multi-Ingredient Ointment (Analgesic [place]) 1 liu PRN QID PRN TP MUSCLE PAIN; Start 10/10/18 at 23:00 Al Hydroxide/Mg Hydroxide (Mylanta Plus Xs) 15 ml PRN AFTMEALHC PRN PO DYSPEPSIA; Start 10/10/18 at 23:00 Magnesium Hydroxide (Milk Of Magnesia) 2,400 mg PRN QHS PRN PO CONSTIPATION; Start 10/10/18 at 23:00 Dextrose 12.5 gm PRN Q15MIN PRN IV SEE COMMENTS; Start 10/11/18 at 14:00 Quetiapine Fumarate (SEROquel) 12.5 mg 0900,1300,1700 PO Last administered on 17:15; Start 10/12/18 at 09:00; Stop 10/20/18 at 07:47; Status DC Fluvoxamine Maleate (Luvox) 25 mg HS PO Last administered on 10/15/18 19:21; Start 10/13/18 at 21:00; Stop 10/15/18 at 23:00; Status DC Fluvoxamine Maleate (Luvox) 50 mg HS PO Last administered on 10/24/18 20:23; Start 10/16/18 at 21:00 Olanzapine (ZyPREXA ZYDIS) 2.5 mg PRN Q2HR PRN PO PSYCHOSIS Last administered on 10/19/18 20:24; Start 10/15/18 at 15:45 Quetiapine Fumarate (SEROquel) 12.5 mg BID@1300,1700 PO Last administered on 16:52; Start 10/20/18 at 13:00 Quetiapine Fumarate (SEROquel) 25 mg DAILY PO Last administered on 10/24/18 09: 24; Start 10/20/18 at 09:00 Rivastigmine (Exelon) 1 patch DAILY TD Last administered on 10/24/18 09:25; Start 10/21/18 at 09:00 Active Scripts Active Reported Acetaminophen 500 Mg Tablet 500 Mg PO PRN Q6HRS PRN Multi-Vitamin Daily (Multivitamin) 1 Each Tablet 1 Each PO DAILY EXELON 4.6mg/24hr (Rivastigmine) 1 Each Patch.td24 1 Patch TD DAILY Mirtazapine 15 Mg Tablet 15 Mg PO QHS Clonazepam 0.5 Mg Tablet 0.25 Mg PO TID Calcium 500 + Vit D 200 Tablet (Calcium Carbonate/Vitamin D3) 1 Each Tablet 1 Each PO BID I have reviewed the current psychotropics carefully including drug interactions. Risk benefit ratio favors no change other than as noted in my dictated progress note. Diagnosis: Problems: (1) Behavioral problems (2) Elevated blood sugar level (3) Medical clearance for psychiatric admission (4) Anxiety disorder (5) Major depressive disorder, recurrent episode (6) Impulse control disorder (7) Mild cognitive impairment TIM BRUNSON MD Oct 24, 2018 22:42
[2018-10-25] MEDS ORDERED: MAG355OR17 PO (00:49)
[2018-10-25] MEDS ORDERED: MAGN2400 PO (00:49)
[2018-10-25] MEDS ORDERED: OLAN5TAB5 PO (00:50)
[2018-10-25] MEDS ORDERED: METH29OI TP (00:50)
[2018-10-25] MEDS ORDERED: QUET25TA5 PO ×2 (00:51)
[2018-10-25] MEDS ORDERED: RIVA1PAT23 TD (00:52)
[2018-10-25] MEDS ORDERED: FLUV50TA2 PO (00:53)
[2018-10-25 06:05] VITALS: BP 128/71
[2018-10-25] MEDS: MULTIVITAMIN with MINERAL TABLET. PO SCH (07:38)
[2018-10-25] MEDS: QUEtiapine 25 MG TABLET. PO SCH (07:38)
[2018-10-25] MEDS: RIVASTIGMINE 9.5MG PATCH. TD SCH (07:38)
[2018-10-25] MEDS: CALCIUM CARB/VIT D3 500/200 TABLET PO SCH (07:38)
[2018-10-25] MEDS: clonazePAM 0.5 MG TABLET PO SCH (07:40)
--- NOTE | 2018-10-25 09:26 | PN ---
DATE: 10/22/2018 PSYCHIATRIC PROGRESS NOTE This late entry 10/22/2018 covers elements not covered in my initial note. SUBJECTIVE: I met with the patient in the evening. The patient has been visiting in the day room with other patients, wants to go back home with her . In fact they are in together at the facility, but she gets somewhat confused. She remains somewhat obsessed with the clothes, otherwise compliant. Knows how to put the bed rails down per nursing report. REVIEW OF SYSTEMS: No CV, , pulmonary, eye system symptoms on review. MENTAL STATUS EXAM: Oriented to herself and situation. Speech is coherent, rapid at times. Abstraction fair, computation impaired, language function intact. Attention span short. Short term memory is impaired partly due to her cognition and worsened by her anxiety. No suicidal or homicidal ideation. She is less obsessive. LABORATORY DATA: Reviewed. IMPRESSION: Unchanged from initial note. PLAN: No change from initial note. We will continue to adjust the Luvox as clinically indicated. Rest unchanged. MAN Rashad BRUNSON MD DR: FLYNN/mitzi JOB#: [id number] / [id number]
--- NOTE | 2018-10-25 09:27 | PN ---
DATE: 10/23/2018 PSYCHIATRIC PROGRESS NOTE This late entry 10/23/2018, covers elements not covered in my initial note. SUBJECTIVE: I met with the patient in the evening. The patient slept 8-1/4 hours previous night. She is less anxious, but still making profuse notes in her notebook, which she showed me. These are written and very tiny handwriting, difficult to read, unconnected at times. REVIEW OF SYSTEMS: No CV, , pulmonary, eye system symptoms on review. MENTAL STATUS EXAM: Oriented to herself and situation. Speech is coherent, less pressured. Abstraction fair, computation impaired, language function intact, attention span short. Mood and affect somewhat obsessive, anxious, labile, but much improved. LABORATORY DATA: Reviewed. IMPRESSION: Unchanged from initial note. PLAN: No change from initial note. MAN Rashad BRUNSON MD DR: FLYNN/mitzi JOB#: [id number] / [id number]
--- NOTE | 2018-10-25 17:34 | DS ---
DATE OF DISCHARGE: 10/25/2018 DISCHARGE SUMMARY/PSYCHIATRIC PROGRESS NOTE This note covers elements not covered in my initial note 10/25/2018. IDENTIFYING DATA: The patient is an 88-year-old female referred to us from [facility] by her primary care physician on account of increasing confusion, marked obsessiveness about going home. She was verbally abusive towards spouse calling her sons 20-60 two times a day. She is anxious, agitated, depressed, writing notes over and over, pacing, crying, blaming her for placement. She had failed outpatient psychiatric interventions resulting in this referral and behaviors were unmanageable at the facility. SIGNIFICANT FINDINGS AND CLINICAL COURSE: Following admission, the patient was seen daily individually by myself from a psychiatric standpoint, medical followup with Dr. Anderosn. The patient was noted to be extremely obsessive, anxious, repetitive. Adjustments were made in her psychotropics. She seemed to respond to a combination of Klonopin 0.25 mg t.i.d., Luvox 75 mg a day, Remeron 15 mg at bedtime, Exelon patch 9.5 mg daily, Seroquel 25 mg 9:00 a.m. and 12.5 mg at 1300, 1700; Zyprexa p.r.n. Prior to discharge on 10/25/2018. REVIEW OF SYSTEMS: No CV, , pulmonary, eye, ENT system symptoms on review. MENTAL STATUS EXAM: Oriented to herself and situation. Speech coherent, less pressured. Abstraction fair, computation impaired, language function intact, attention span short. Mood and affect less anxious, obsessive. LABORATORY DATA: Reviewed. IMPRESSION: Unchanged from initial note. PLAN: No change from initial note. CONDITION AT DISCHARGE: Improved. FINAL DIAGNOSES: Major depressive disorder, recurrent with psychotic features, obsessive-compulsive disorder, major neurocognitive disorder, early Alzheimer, vascular with delusion, depression, behavioral disturbance; anxiety disorder, unspecified; impulse control disorder, unspecified. Rest unchanged from admission. DISCHARGE MEDICATIONS: Please refer to the [facility]AD for details. DISCHARGE INSTRUCTIONS: Outpatient psychiatric and medical followup at the retirement. Time for discharge day management greater than 30 minutes. TIM BRUNSON MD DR: FLYNN/mitzi JOB#: [id number] / [id number]
--- NOTE | 2018-10-25 18:33 | PDOC ---
Exam Note: Yifan Note: Please also refer to the separate dictated note~for this date of service dictated separately.~Patient seen individually. Discussed the patient with Nursing staff reviewed the chart.~Reviewed interim history and current functioning. Reviewed vital signs,~Labs/ Radiology~and current medications noted below. Continue current treatment with the changes noted in the dictated addendum note Assessment: Vital Signs: Vital Signs Date Time Temp Pulse Resp B/P (MAP) Pulse Ox O2 Delivery O2 Flow Rate FiO2 10/25/18 06:05 97.9 66 16 128/71 (90) 99 10/22/18 16:57 Room Air I&O Intake and Output 10/25/18 07:00 Intake Total 720 ml Balance 720 ml Intake Oral 720 ml Current Medications: Meds: Current Medications Clonazepam (KlonoPIN) 0.25 mg TID PO Last administered on 10/25/18 07:40; Start 10/10/18 at 21:00; Stop 10/25/18 at 11:48; Status DC Mirtazapine (Remeron) 15 mg QHS PO Last administered on 10/24/18 20:23; Start 10/10/18 at 21:00; Stop 10/25/18 at 11:48; Status DC Rivastigmine (Exelon) 1 patch DAILY TD Last administered on 10/20/18 08:29; Start 10/11/18 at 09:00; Stop 10/20/18 at 11:26; Status DC Calcium/Vitamin D (Oscal D 500mg/ 200uts) 1 tab BID PO Last administered on 10/25 07:38; Start 10/10/18 at 21:00; Stop 10/25/18 at 11:48; Status DC Acetaminophen (Tylenol) 500 mg PRN Q6HRS PRN PO PAIN / TEMP Last administered on 10/21/18 10:42; Start 10/10/18 at 19:45; Stop 10/25/18 at 11:48; Status DC Multivitamins/ Calcium (Thera-M Plus) 1 tab DAILY PO Last administered on 07:38; Start 10/11/18 at 09:00; Stop 10/25/18 at 11:48; Status DC Acetaminophen (Tylenol) 650 mg PRN Q6HRS PRN PO PAIN / TEMP; Start 10/10/18 at 23:00; Stop 10/10/18 at 23:00; Status DC Multi-Ingredient Ointment (Analgesic [place]) 1 cami PRN QID PRN TP MUSCLE PAIN; Start 10/10/18 at 23:00; Stop 10/25/18 at 11:48; Status DC Al Hydroxide/Mg Hydroxide (Mylanta Plus Xs) 15 ml PRN AFTMEALHC PRN PO DYSPEPSIA; Start 10/10/18 at 23:00; Stop 10/25/18 at 11:48; Status DC Magnesium Hydroxide (Milk Of Magnesia) 2,400 mg PRN QHS PRN PO CONSTIPATION; Start 10/10/18 at 23:00; Stop 10/25/18 at 11:48; Status DC Dextrose 12.5 gm PRN Q15MIN PRN IV SEE COMMENTS; Start 10/11/18 at 14:00; Stop 10/25/18 at 11:48; Status DC Quetiapine Fumarate (SEROquel) 12.5 mg 0900,1300,1700 PO Last administered on 17:15; Start 10/12/18 at 09:00; Stop 10/20/18 at 07:47; Status DC Fluvoxamine Maleate (Luvox) 25 mg HS PO Last administered on 10/15/18 19:21; Start 10/13/18 at 21:00; Stop 10/15/18 at 23:00; Status DC Fluvoxamine Maleate (Luvox) 50 mg HS PO Last administered on 10/24/18 20:23; Start 10/16/18 at 21:00; Stop 10/25/18 at 11:48; Status DC Olanzapine (ZyPREXA ZYDIS) 2.5 mg PRN Q2HR PRN PO PSYCHOSIS Last administered on 10/19/18 20:24; Start 10/15/18 at 15:45; Stop 10/25/18 at 11:48; Status DC Quetiapine Fumarate (SEROquel) 12.5 mg BID@1300,1700 PO Last administered on 16:52; Start 10/20/18 at 13:00; Stop 10/25/18 at 11:48; Status DC Quetiapine Fumarate (SEROquel) 25 mg DAILY PO Last administered on 10/25/18at 07: 38; Start 10/20/18 at 09:00; Stop 10/25/18 at 11:48; Status DC Rivastigmine (Exelon) 1 patch DAILY TD Last administered on 10/25/18at 07:38; Start 10/21/18 at 09:00; Stop 10/25/18 at 11:48; Status DC Active Scripts Active Reported Fluvoxamine Maleate 50 Mg Tablet 50 Mg PO QHS EXELON 9.5mg/24hr (Rivastigmine) 1 Each Patch.td24 1 Patch TD DAILY Seroquel (Quetiapine Fumarate) 25 Mg Tablet 25 Mg PO DAILY Seroquel (Quetiapine Fumarate) 25 Mg Tablet 12.5 Mg PO BID@1300,1700 Zyprexa Zydis (Olanzapine) 5 Mg Tab.rapdis 2.5 Mg PO PRN Q2HR PRN Analgesic [place] (Methyl Salicylate/Menthol) 28 Gm Oint...g. 1 Cami TP PRN QID PRN Milk Of Magnesia (Magnesium Hydroxide) 2,400 Mg/10 Ml Oral.susp 2,400 Mg PO PRN QHS PRN Advanced Antacid Liquid (Mag Hydrox/Al Hydrox/Simeth) 355 Ml Oral.susp 15 Ml PO PRN AFTMEALHC PRN Acetaminophen 500 Mg Tablet 500 Mg PO PRN Q6HRS PRN Multi-Vitamin Daily (Multivitamin) 1 Each Tablet 1 Each PO DAILY Mirtazapine 15 Mg Tablet 15 Mg PO QHS Clonazepam 0.5 Mg Tablet 0.25 Mg PO TID Calcium 500 + Vit D 200 Tablet (Calcium Carbonate/Vitamin D3) 1 Each Tablet 1 Each PO BID I have reviewed the current psychotropics carefully including drug interactions. Risk benefit ratio favors no change other than as noted in my dictated progress note. Diagnosis: Problems: (1) Mild cognitive impairment (2) Impulse control disorder (3) Major depressive disorder, recurrent episode (4) Anxiety disorder TIM BRUNSON MD Oct 25, 2018 18:33
--- NOTE | 2018-10-25 20:46 | PN ---
DATE: 10/24/2018 PSYCHIATRIC PROGRESS NOTE This late entry 10/24/2018 covers elements not covered in my initial note. SUBJECTIVE: I met with the patient in the evening. The patient slept 6-3/4 hours previous night. She is compliant with her medications, somewhat obsessive regarding her belongings and I met with her at great length in the evening. REVIEW OF SYSTEMS: No CV, , pulmonary, eye system symptoms on review. MENTAL STATUS EXAM: She is still writing profusely in her diary in small letters and I read this with her. Oriented to herself and situation. Speech coherent, anxious. Abstraction fair, computation impaired, language function intact, slightly less obsessive at times and calmer. LABORATORY DATA: Reviewed. IMPRESSION: Unchanged from initial note. PLAN: No change from initial note with possible transition back to her place with her on 10/25/2018. MAN Rashad BRUNSON MD DR: FLYNN/mitzi JOB#: [id number] / [id number]
== END 2018-10-25 11:35 | DRG 885 ==
LOC: ER 15:13 → GEROPSY 17:55
PROVIDERS: ADMIT Psychiatry & Neurology Psychiatry; ATTEND Psychiatry & Neurology Psychiatry
DX: F33.3 Major depressive disorder, recurrent, severe with psychotic symptoms (principal); R73.9 Hyperglycemia, unspecified; F41.9 Anxiety disorder, unspecified; F63.9 Impulse disorder, unspecified; N18.9 Chronic kidney disease, unspecified; Z66 Do not resuscitate; M81.0 Age-related osteoporosis without current pathological fracture; F42.9 Obsessive-compulsive disorder, unspecified; F01.50 Vascular dementia, unspecified severity, without behavioral disturbance, psychotic disturbance, mood disturbance, and anxiety; G30.9 Alzheimer's disease, unspecified; I12.9 Hypertensive chronic kidney disease with stage 1 through stage 4 chronic kidney disease, or unspecified chronic kidney disease; K59.09 Other constipation; Z90.49 Acquired absence of other specified parts of digestive tract; Z90.710 Acquired absence of both cervix and uterus
CPT/HCPCS: 36415; 70450; 80053; 80061; 81001; 82306; 82947; 83036; 83540; 83550; 83735; 84436; 84443; 84480; 85025; 86592; 93005; 99285-25